=== PATIENT | male | born 1970 | race Hispanic/Latino ===

== ENCOUNTER 2017-12-03 12:53 | Observation (INO) | payer MEDICAID ==
[~2017-12-03] VITALS: Ht 182.9 cm; Wt 97.5 kg
[~2017-12-03 12:53] MED LIST: ASPI-1181 PO; ATOR20TA65 PO; CANA300T PO; CLOP75TA32 PO; ERYT1OIN7 OU; GLIP10TA9 PO; INSU100V12 SQ; LISI-617 PO; METO25 PO; NITR0.4T SL
[2017-12-03 13:38] LABS: BASOPHILS % (AUTO) 0.8 % (0.0-5.0); HEMATOCRIT 40.6 % (42-54); LYMPHOCYTES % (AUTO) 36.5 % (21.0-51.0); MEAN CORPUSCULAR VOLUME 88.5 fL (79-99); MONOCYTES % (AUTO) 10.7 % (3.0-13.0); NUCLEATED RED BLOOD CELLS 0.1 % (0.0-0.19); PLATELET COUNT (AUTO) 256 K/uL (130-400); RED BLOOD CELL COUNT(AUTO) 4.58 MIL/uL (4.50-6.20); RED CELL DISTRIBUTION WIDTH 12.8 % (11.0-15.5)
[2017-12-03 13:48] LABS: CREATININE 0.8 mg/dL (0.5-1.5); POTASSIUM 4.1 mmol/L (3.5-5.1)
[2017-12-03 13:52] LABS: ALBUMIN 3.6 g/dL (3.5-5.0); BILIRUBIN,TOTAL 0.6 mg/dL (0.2-1.0); TOTAL PROTEIN, SERUM 7.6 g/dL (6.0-8.3)
[2017-12-03 14:20] LABS: B-TYPE NATRIURETIC PEPTIDE 10 pg/mL (0-100)
[2017-12-03] MEDS ORDERED: MAG HYDROX/AL HYDROX/SIMETH ES 30 ML SUSP UDCUP PO PRN (15:45)
[2017-12-03] MEDS ORDERED: GUAIFENESIN-DM 200/20 MG 10 ML PO PRN (15:45)
[2017-12-03] MEDS ORDERED: ACETAMINOPHEN-CODEINE 300/30MG TAB PO PRN (15:45)
[2017-12-03] MEDS ORDERED: LACTULOSE 20 GM/30 ML UDCUP PO PRN (15:45)
[2017-12-03] MEDS ORDERED: NITROGLYCERIN 0.4 MG SL TAB SL PRN (15:45)
[2017-12-03] MEDS ORDERED: ACETAMINOPHEN 325 MG TAB PO PRN ×2 (15:45)
[2017-12-03] MEDS ORDERED: ONDANSETRON HCL MDV 20ML 2 MG/ML VIAL IV PRN (15:45)
[2017-12-03] MEDS ORDERED: ASPIRIN 81MG TAB.CHEW ONE ×2 (16:39→17:10)
[2017-12-03] MEDS ORDERED: ENOXAPARIN SODIUM 40 MG/0.4 ML SYRINGE SQ ONE (17:10)
[2017-12-03] MEDS: METOPROLOL TARTRATE 25 MG TAB PO SCH (21:00)
[2017-12-03] MEDS: FAMOTIDINE/PF 20 MG/2 ML VIAL IV SCH (21:00)
[2017-12-03] MEDS ORDERED: FAMOTIDINE/PF 20 MG/2 ML VIAL IV ONE (21:03)
[2017-12-03] MEDS ORDERED: METOPROLOL TARTRATE 25 MG TAB ONE (21:03)
[2017-12-03 21:41] LABS: CREATINE KINASE MB 0.5 ng/mL (0.5-3.6); CREATINE KINASE, TOTAL 112 U/L (21-232); MYOGLOBIN 41 ng/mL (10-92); TROPONIN I < 0.04 ng/mL (0.00-0.06)
[2017-12-03 21:45] VITALS: BP 127/80
[2017-12-03] MEDS ORDERED: KETOROLAC TROMETHAMINE 15MG/ML IV SCH (22:45)
[2017-12-03] MEDS ORDERED: KETOROLAC TROMETHAMINE 15MG/ML ONE (22:49)
[2017-12-03 23:34] VITALS: BP 127/80
[2017-12-04] MEDS ORDERED: POTASSIUM CHLORIDE 10% ELIXIR 20 MEQ/15 ML UDCUP PO PRN (00:30)
[2017-12-04] MEDS ORDERED: LIDOCAINE HCL-MPF 1% 2ML VIAL IVP PRN (00:30)
[2017-12-04] MEDS ORDERED: GLUCAGON 1MG KIT 1 MG ML IM PRN (00:30)
[2017-12-04] MEDS ORDERED: POTASSIUM CHLORIDE 20MEQ/100ML 100 ML IV PRN (00:30)
[2017-12-04] MEDS ORDERED: POTASSIUM CHLORIDE 20 MEQ ERTAB PO PRN (00:30)
[2017-12-04] MEDS ORDERED: DEXTROSE 50%-WATER 50 ML DISP.SYRIN IV PRN (00:30)
[2017-12-04 03:34] VITALS: BP 106/63
[2017-12-04 03:58] LABS: HEMATOCRIT 37.9 % (42-54); MEAN CORPUSCULAR HEMOGLOBIN 30.9 pg (27.0-33.0); MEAN CORPUSCULAR HGB CONC 34.8 g/dL (32.0-36.0); PLATELET COUNT (AUTO) 264 K/uL (130-400); RED BLOOD CELL COUNT(AUTO) 4.26 MIL/uL (4.50-6.20); RED CELL DISTRIBUTION WIDTH 12.6 % (11.0-15.5); WHITE BLOOD COUNT (AUTO) 5.9 K/uL (4.8-10.8)
[2017-12-04 04:16] LABS: CREATININE 1.3 mg/dL (0.5-1.5); POTASSIUM 4.1 mmol/L (3.5-5.1)
[2017-12-04] MEDS: INSULIN HUMULIN R 100 UNIT/ML 3ML SQ SCH ×2 (06:25→11:30)
[2017-12-04 06:47] LABS: CREATINE KINASE MB 0.5 ng/mL (0.5-3.6); CREATINE KINASE, TOTAL 165 U/L (21-232); MYOGLOBIN 55 ng/mL (10-92); TROPONIN I < 0.04 ng/mL (0.00-0.06)
[2017-12-04 07:59] VITALS: BP 122/72
[2017-12-04] MEDS ORDERED: ASPIRIN 325 MG TABLET PO SCH (09:00)
[2017-12-04] MEDS ORDERED: ENOXAPARIN SODIUM 40 MG/0.4 ML SYRINGE SQ SCH (09:00)
[2017-12-04] MEDS: FAMOTIDINE/PF 20 MG/2 ML VIAL IV SCH (09:10)
[2017-12-04] MEDS: METOPROLOL TARTRATE 25 MG TAB PO SCH (09:10)
[2017-12-04] MEDS ORDERED: KETOROLAC TROMETHAMINE 15MG/ML IV SCH ×2 (10:27→10:30)
[2017-12-04 11:38] VITALS: BP 114/73
== END 2017-12-04 11:49 | disposition home or self-care (01) ==
LOC: EDH 12:53 → EDHIP 12:54 → 2AH 20:51
PROVIDERS: ADMIT Family Medicine; ATTEND Family Medicine
DX: R07.9 Chest pain, unspecified (principal); E11.9 Type 2 diabetes mellitus without complications; E78.5 Hyperlipidemia, unspecified; I10 Essential (primary) hypertension; I25.10 Atherosclerotic heart disease of native coronary artery without angina pectoris; Z95.5 Presence of coronary angioplasty implant and graft; Z83.3 Family history of diabetes mellitus; Z82.49 Family history of ischemic heart disease and other diseases of the circulatory system
CPT/HCPCS: 36415 ×2; 71045; 80048; 80053; 82550 ×2; 82553 ×2; 82948 ×2; 83874 ×2; 83880; 84484 ×3; 85025; 85027; 93005 ×3; 96372; 96374; 96375; 99285; G0378 ×23; J1650 ×2; J1885 ×2; J3490 ×2

== ENCOUNTER 2018-01-14 21:49 | Emergency (ER) | payer MEDICAID ==
[2018-01-14] MEDS ORDERED: ASPIRIN 325 MG TABLET ONE (22:22)
[2018-01-14 22:43] LABS: BASOPHILS % (AUTO) 1.2 % (0.0-5.0); EOSINOPHILS % (AUTO) 0.6 % (0.0-8.0); HEMATOCRIT 39.3 % (42-54); LYMPHOCYTES % (AUTO) 28.5 % (21.0-51.0); MEAN CORPUSCULAR HEMOGLOBIN 32.5 pg (27.0-33.0); MEAN CORPUSCULAR HGB CONC 36.1 g/dL (32.0-36.0); MONOCYTES % (AUTO) 9.3 % (3.0-13.0); NEUTROPHILS % (AUTO) 60.4 % (40.0-77.0); PLATELET COUNT (AUTO) 252 K/uL (130-400); RED BLOOD CELL COUNT(AUTO) 4.37 MIL/uL (4.50-6.20); RED CELL DISTRIBUTION WIDTH 12.9 % (11.0-15.5); WHITE BLOOD COUNT (AUTO) 5.9 K/uL (4.8-10.8)
[2018-01-14 22:52] LABS: INR 0.91 (0.85-1.15); PARTIAL THROMBOPLASTIN TIME 24.5 SEC (26.3-35.5); PROTHROMBIN TIME 9.6 SEC (9.6-11.6)
[2018-01-14 23:20] LABS: ALBUMIN 3.6 g/dL (3.5-5.0); BILIRUBIN,TOTAL 0.4 mg/dL (0.2-1.0); CREATINE KINASE MB 0.5 ng/mL (0.5-3.6); CREATININE 1.1 mg/dL (0.5-1.5); POTASSIUM 4.2 mmol/L (3.5-5.1); TOTAL PROTEIN, SERUM 7.6 g/dL (6.0-8.3)
[2018-01-14] MEDS ORDERED: SODIUM CHLORIDE 0.9% 1000ML 1,000 ML IV ONE (23:29)
[2018-01-14] MEDS ORDERED: INSULIN HUMULIN R 100 UNIT/ML 3ML ONE (23:31)
== END 2018-01-15 01:11 | disposition home or self-care (01) ==
LOC: EDH 21:49
DX: R07.89 Other chest pain (principal); E11.65 Type 2 diabetes mellitus with hyperglycemia; I10 Essential (primary) hypertension; Z98.62 Peripheral vascular angioplasty status
CPT/HCPCS: 36415 ×2; 71045; 80053; 82550; 82553; 82947; 84484 ×2; 85025; 85610; 85730; 93005 ×2; 96361; 96374; 99285; J1815; J7030

== ENCOUNTER → 2018-01-28 | Outpatient (CLI) | payer MEDICAID ==
[~2018-01-28] MED LIST changes: +REGADENOSON 0.4 MG/5 ML PF SYG IVP SCH
== END | disposition home or self-care (01) ==
LOC: SHCH 07:58
PROVIDERS: ATTEND Internal Medicine Cardiovascular Disease
DX: I25.10 Atherosclerotic heart disease of native coronary artery without angina pectoris (principal)
CPT/HCPCS: 78452; 93017; 96374; A9500 ×2; J2785

== ENCOUNTER → 2018-07-24 | Outpatient (CLI) | payer MEDICAID ==
[~2018-07-24] MED LIST changes: -REGADENOSON 0.4 MG/5 ML PF SYG IVP SCH
== END | disposition home or self-care (01) ==
LOC: SHCH 12:59
PROVIDERS: ATTEND Internal Medicine Cardiovascular Disease
DX: I65.23 Occlusion and stenosis of bilateral carotid arteries (principal); I87.2 Venous insufficiency (chronic) (peripheral)
CPT/HCPCS: 93880

== ENCOUNTER 2018-07-26 20:25 | Emergency (ER) | payer MEDICAID ==
[2018-07-26] MEDS ORDERED: ASPIRIN 325 MG TABLET ONE (20:37)
[2018-07-26 20:51] LABS: BASOPHILS % (AUTO) 0.8 % (0.0-5.0); EOSINOPHILS % (AUTO) 0.5 % (0.0-8.0); HEMATOCRIT 44.4 % (42-54); LYMPHOCYTES % (AUTO) 24.5 % (21.0-51.0); MEAN CORPUSCULAR VOLUME 89.9 fL (79-99); MONOCYTES % (AUTO) 10.1 % (3.0-13.0); NEUTROPHILS % (AUTO) 64.1 % (40.0-77.0); NUCLEATED RED BLOOD CELLS 0.4 % (0.0-0.19); PLATELET COUNT (AUTO) 318 K/uL (130-400); RED BLOOD CELL COUNT(AUTO) 4.94 MIL/uL (4.50-6.20); WHITE BLOOD COUNT (AUTO) 6.7 K/uL (4.8-10.8)
[2018-07-26] MEDS ORDERED: NITROGLYCERIN 1GM/1 INCH PACKET TD ONE (21:03)
[2018-07-26 21:05] LABS: ALBUMIN 3.5 g/dL (3.5-5.0); POTASSIUM 4.5 mmol/L (3.5-5.1)
[2018-07-26 21:11] LABS: MEAN CORPUSCULAR HEMOGLOBIN 30.3 pg (27.0-33.0); MEAN CORPUSCULAR HGB CONC 33.7 g/dL (32.0-36.0)
[2018-07-26 21:22] LABS: B-TYPE NATRIURETIC PEPTIDE < 5 pg/mL (0-100)
[2018-07-26] MEDS ORDERED: SODIUM CHLORIDE 0.9% 1000ML 1,000 ML IV ONE (21:28)
[2018-07-26] MEDS ORDERED: INSULIN HUMULIN R 100 UNIT/ML 3ML ONE (21:29)
[2018-07-26 21:36] LABS: APPEARANCE,URINE Clear (CLEAR); BILIRUBIN,URINE Negative (NEGATIVE); COLOR,URINE Yellow (YELLOW); GLUCOSE, URINE (UA) >=1000 mg/dL (NEGATIVE); KETONES,URINE 15 mg/dL (NEGATIVE); LEUKOCYTE ESTERASE ,URINE Negative (NEGATIVE); NITRATE,URINE Negative (NEGATIVE); OCCULT BLOOD,URINE Negative (NEGATIVE); PROTEIN,URINE Negative (NEGATIVE); UROBILINOGEN,URINE 0.2 mg/dL (0.2-1.0)
[2018-07-26 21:43] LABS: AMPHET/METH SCREEN,URINE NEGATIVE (NEGATIVE); BARBITURATE SCREEN, URINE NEGATIVE (NEGATIVE); BENZODIAZEPINES SCREEN,URINE NEGATIVE (NEGATIVE); CANNABINOID SCREEN,URINE NEGATIVE (NEGATIVE); COCAINE SCREEN,URINE NEGATIVE (NEGATIVE); OPIATE SCREEN,URINE NEGATIVE (NEGATIVE); PHENCYCLIDINE SCREEN,URINE NEGATIVE (NEGATIVE)
[2018-07-26 21:49] LABS: CREATININE 0.7 mg/dL (0.5-1.5)
[2018-07-26 21:50] LABS: TOTAL PROTEIN, SERUM 6.6 g/dL (6.0-8.3)
[2018-07-26 22:07] LABS: BACTERIA,URINE Rare /HPF (None Seen); RBC,URINE 0-1 /HPF (0-1); SQUAMOUS EPITHELIAL CELL,UR Rare /HPF (0-2); WBC,URINE 0-1 /HPF (0-1)
== END 2018-07-26 23:30 | disposition home or self-care (01) ==
LOC: EDH 20:25
DX: R07.89 Other chest pain (principal); E11.65 Type 2 diabetes mellitus with hyperglycemia; E86.0 Dehydration; I10 Essential (primary) hypertension; E78.5 Hyperlipidemia, unspecified; I25.2 Old myocardial infarction; Z98.890 Other specified postprocedural states; Z79.82 Long term (current) use of aspirin; Z79.84 Long term (current) use of oral hypoglycemic drugs; Z79.899 Other long term (current) drug therapy
CPT/HCPCS: 36415; 71045; 71100; 80053; 80305; 81001; 82550; 82948; 83874; 83880; 84484 ×2; 85025; 85610; 85730; 93005 ×2; 94761; 96374; 99285; J1815; J7030

== ENCOUNTER 2019-03-14 19:53 | Observation (INO) | payer MEDICAID ==
[~2019-03-14] VITALS: Ht 182.9 cm; Wt 98.0 kg
[2019-03-14 20:14] LABS: BASOPHILS % (AUTO) 0.5 % (0.0-5.0); EOSINOPHILS % (AUTO) 0.1 % (0.0-8.0); HEMATOCRIT 43.9 % (42-54); LYMPHOCYTES % (AUTO) 9.4 % (21.0-51.0); MEAN CORPUSCULAR HEMOGLOBIN 29.7 pg (27.0-33.0); MEAN CORPUSCULAR HGB CONC 33.2 g/dL (32.0-36.0); MEAN CORPUSCULAR VOLUME 89.3 fL (79-99); MONOCYTES % (AUTO) 9.1 % (3.0-13.0); NEUTROPHILS % (AUTO) 80.9 % (40.0-77.0); NUCLEATED RED BLOOD CELLS 0.1 % (0.0-0.19); PLATELET COUNT (AUTO) 237 K/uL (130-400); RED BLOOD CELL COUNT(AUTO) 4.92 MIL/uL (4.50-6.20); RED CELL DISTRIBUTION WIDTH 13.7 % (11.0-15.5); WHITE BLOOD COUNT (AUTO) 12.3 K/uL (4.8-10.8)
[2019-03-14 20:28] LABS: CREATININE 1.1 mg/dL (0.5-1.5); POTASSIUM 4.9 mmol/L (3.5-5.1)
[2019-03-14 20:48] LABS: INR 0.93 (0.85-1.15); PROTHROMBIN TIME 9.8 SEC (9.6-11.6)
[2019-03-14 20:50] LABS: ALBUMIN 4.1 g/dL (3.5-5.0); BILIRUBIN,TOTAL 1.1 mg/dL (0.2-1.0); TOTAL PROTEIN, SERUM 8.2 g/dL (6.0-8.3)
[2019-03-14] MEDS ORDERED: LORAZEPAM 2 MG/ML 1 ML VIAL ONE (20:50)
[2019-03-14] MEDS ORDERED: SODIUM CHLORIDE 0.9% 500ML 500 ML IV ONE (22:43)
[2019-03-14] MEDS ORDERED: ASPIRIN 325MG EC TAB 325 MG TABLET.DR PO STA (22:53)
[2019-03-14] MEDS ORDERED: IOHEXOL 350 MG/ML 100ML INFUS..BTL IV ONE (22:59)
[2019-03-14] MEDS ORDERED: DEXTROSE 50%-WATER 50 ML DISP.SYRIN IV PRN (23:00)
[2019-03-14] MEDS ORDERED: GLUCAGON 1MG KIT 1 MG ML IM PRN (23:00)
[2019-03-14] MEDS ORDERED: ACETAMINOPHEN EXTRA STRENGTH 500 MG TABLET ONE (23:01)
[2019-03-14] MEDS ORDERED: ASPIRIN 325 MG TABLET ONE (23:01)
[2019-03-14 23:18] LABS: HEMOGLOBIN A1C 6.8 % (4.0-6.0)
[2019-03-15 00:05] VITALS: BP 101/62
[2019-03-15] MEDS ORDERED: MAGNESIUM 2GM PREMIX 50ML 50 ML IV PRN (00:45)
[2019-03-15] MEDS ORDERED: ACETAMINOPHEN 325 MG TAB PO PRN ×2 (00:45)
[2019-03-15] MEDS ORDERED: ONDANSETRON HCL 4 MG/2 ML VIAL IV PRN (00:45)
[2019-03-15] MEDS ORDERED: NITROGLYCERIN 0.4 MG SL TAB SL PRN (00:45)
[2019-03-15 04:00] VITALS: BP 91/66
[2019-03-15 04:16] LABS: BASOPHILS % (AUTO) 0.4 % (0.0-5.0); HEMATOCRIT 38.6 % (42-54); LYMPHOCYTES % (AUTO) 13.7 % (21.0-51.0); MEAN CORPUSCULAR HEMOGLOBIN 30.5 pg (27.0-33.0); MEAN CORPUSCULAR HGB CONC 34.1 g/dL (32.0-36.0); MEAN CORPUSCULAR VOLUME 89.4 fL (79-99); MONOCYTES % (AUTO) 8.6 % (3.0-13.0); NEUTROPHILS % (AUTO) 77.3 % (40.0-77.0); PLATELET COUNT (AUTO) 201 K/uL (130-400); RED BLOOD CELL COUNT(AUTO) 4.32 MIL/uL (4.50-6.20); RED CELL DISTRIBUTION WIDTH 13.9 % (11.0-15.5); WHITE BLOOD COUNT (AUTO) 9.2 K/uL (4.8-10.8)
[2019-03-15 04:33] LABS: APPEARANCE,URINE CLEAR (CLEAR); BILIRUBIN,URINE NEGATIVE (NEGATIVE); COLOR,URINE YELLOW (YELLOW); GLUCOSE, URINE (UA) >=1000 mg/dL (NEGATIVE); KETONES,URINE NEGATIVE (NEGATIVE); LEUKOCYTE ESTERASE ,URINE NEGATIVE (NEGATIVE); NITRATE,URINE NEGATIVE (NEGATIVE); OCCULT BLOOD,URINE NEGATIVE (NEGATIVE); PH,URINE 5.5 (5.0-8.0); PROTEIN,URINE NEGATIVE (NEGATIVE); UROBILINOGEN,URINE 0.2 mg/dL (0.2-1.0)
[2019-03-15 04:42] LABS: AMPHET/METH SCREEN,URINE NEGATIVE (NEGATIVE); BARBITURATE SCREEN, URINE NEGATIVE (NEGATIVE); BENZODIAZEPINES SCREEN,URINE NEGATIVE (NEGATIVE); CANNABINOID SCREEN,URINE NEGATIVE (NEGATIVE); COCAINE SCREEN,URINE NEGATIVE (NEGATIVE); OPIATE SCREEN,URINE NEGATIVE (NEGATIVE); PHENCYCLIDINE SCREEN,URINE NEGATIVE (NEGATIVE)
[2019-03-15 04:46] LABS: ALANINE AMINOTRANSFERASE 47 U/L (12-78); ALBUMIN 3.6 g/dL (3.5-5.0); ASPARTATE AMINOTRANSFERASE 17 U/L (10-37); CARBON DIOXIDE 25 mmol/L (21-32); CHLORIDE 98 mmol/L (101-111); CHOLESTEROL 100 mg/dL (<200); CREATINE KINASE, TOTAL 42 U/L (21-232); CREATININE 1.3 mg/dL (0.5-1.5); GLOMERULAR FILTR. RATE CALC 63 mL/min (>60); GLUCOSE,RANDOM 146 mg/dL (70-105); HDL CHOLESTEROL 41 mg/dL (29-71); LDL DIRECT 41 mg/dL (0-99); MYOGLOBIN 50 ng/mL (10-92); SODIUM SERUM 134 mmol/L (136-145); TOTAL PROTEIN, SERUM 7.5 g/dL (6.0-8.3); TRIGLYCERIDES 161 mg/dL (30-200); TROPONIN I < 0.04 ng/mL (0.00-0.06); UREA NITROGEN, BLOOD 26 mg/dL (7-18)
[2019-03-15 04:49] LABS: BACTERIA,URINE None Seen /HPF (None Seen); RBC,URINE None Seen /HPF (0-1); SQUAMOUS EPITHELIAL CELL,UR Few /HPF (0-2); WBC,URINE None Seen /HPF (0-1); YEAST,URINE BUDDING None Seen /HPF (None Seen)
[2019-03-15] MEDS: INSULIN HUMULIN R 100 UNIT/ML 3ML SQ SCH ×4 (05:49→23:59)
[2019-03-15 08:00] VITALS: BP 105/67
[2019-03-15] MEDS ORDERED: MORPHINE SULFATE 2 MG/ML 1ML SYG IVP PRN (08:45)
[2019-03-15] MEDS ORDERED: SODIUM CHLORIDE 0.9% 1000ML 1,000 ML IV SCH (08:45)
[2019-03-15] MEDS ORDERED: DIATR MEGLU/DIATRIZOATE SODIUM 30 ML BOTTLE ONE (08:47)
[2019-03-15] MEDS ORDERED: ENOXAPARIN SODIUM 30 MG/0.3 ML SQ SCH (09:00)
[2019-03-15] MEDS: METOPROLOL TARTRATE 25 MG TAB PO SCH ×2 (09:00→22:01)
[2019-03-15] MEDS ORDERED: ASPIRIN 325MG EC TAB 325 MG TABLET.DR PO SCH (09:00)
[2019-03-15] MEDS ORDERED: ASPIRIN 81MG TAB.CHEW ONE (09:05)
--- NOTE | 2019-03-15 09:06 | NUR ---
VITAL SIGNS REPORTED TO [facility] TO HOLD METOPROLOL FOR AM DOSE CHANGE ASPIRIN TO 81 MG PO DAILY
[2019-03-15] MEDS: FAMOTIDINE 20MG TAB 20 MG TAB PO SCH ×2 (09:09→22:01)
[2019-03-15 11:00] VITALS: BP 108/60
[2019-03-15 12:48] LABS: CREATINE KINASE, TOTAL 42 U/L (21-232); MYOGLOBIN 47 ng/mL (10-92); TROPONIN I < 0.04 ng/mL (0.00-0.06)
[2019-03-15 16:00] VITALS: BP 126/74
[2019-03-15 20:00] VITALS: BP 116/72
[2019-03-16 00:03] VITALS: BP 107/68
[2019-03-16 04:00] VITALS: BP 110/75
[2019-03-16 04:27] LABS: BASOPHILS % (AUTO) 0.6 % (0.0-5.0); EOSINOPHILS % (AUTO) 0.5 % (0.0-8.0); HEMATOCRIT 36.9 % (42-54); LYMPHOCYTES % (AUTO) 21.8 % (21.0-51.0); MEAN CORPUSCULAR HGB CONC 33.4 g/dL (32.0-36.0); MEAN CORPUSCULAR VOLUME 89.9 fL (79-99); MONOCYTES % (AUTO) 16.5 % (3.0-13.0); NEUTROPHILS % (AUTO) 60.6 % (40.0-77.0); PLATELET COUNT (AUTO) 205 K/uL (130-400); RED CELL DISTRIBUTION WIDTH 13.8 % (11.0-15.5); WHITE BLOOD COUNT (AUTO) 7.5 K/uL (4.8-10.8)
[2019-03-16 04:37] LABS: CREATININE 1.1 mg/dL (0.5-1.5); POTASSIUM 4.1 mmol/L (3.5-5.1)
[2019-03-16] MEDS: INSULIN HUMULIN R 100 UNIT/ML 3ML SQ SCH ×2 (05:58→11:30)
[2019-03-16 08:00] VITALS: BP 106/65
[2019-03-16] MEDS ORDERED: ASPIRIN 325MG EC TAB 325 MG TABLET.DR PO SCH (09:00)
[2019-03-16] MEDS: METOPROLOL TARTRATE 25 MG TAB PO SCH (09:00)
[2019-03-16] MEDS: FAMOTIDINE 20MG TAB 20 MG TAB PO SCH (09:00)
[2019-03-16 11:00] VITALS: BP 107/67
== END 2019-03-16 16:39 | disposition home or self-care (01) ==
LOC: EDH 19:53 → EDHIP 19:54 → 4CH 03-15 00:59
PROVIDERS: ADMIT Internal Medicine; ATTEND Internal Medicine
DX: R07.89 Other chest pain (principal); D72.829 Elevated white blood cell count, unspecified; E11.9 Type 2 diabetes mellitus without complications; R42 Dizziness and giddiness; E78.5 Hyperlipidemia, unspecified; I10 Essential (primary) hypertension; I25.10 Atherosclerotic heart disease of native coronary artery without angina pectoris; R13.10 Dysphagia, unspecified; I25.2 Old myocardial infarction; Z95.5 Presence of coronary angioplasty implant and graft; Z82.3 Family history of stroke; Z82.49 Family history of ischemic heart disease and other diseases of the circulatory system; Z83.3 Family history of diabetes mellitus; Z79.899 Other long term (current) drug therapy
CPT/HCPCS: 36415 ×3; 71045; 71275; 74170; 80048; 80053 ×2; 80061; 80305; 81001; 82550 ×3; 82948 ×6; 83036; 83690; 83735 ×2; 83874 ×3; 83880; 84484 ×3; 85025 ×3; 85610; 85730; 87040 ×2; 93005 ×3; 96360; 96361 ×2; 99284; G0378 ×45; J1650; J1815; J2060; J7040; Q9963; Q9967

== ENCOUNTER 2019-05-10 15:18 | Observation (INO) | payer MEDICAID ==
[~2019-05-10] VITALS: Ht 182.9 cm; Wt 97.5 kg
[2019-05-10] MEDS ORDERED: ASPIRIN 325 MG TABLET ONE (15:30)
[2019-05-10] MEDS ORDERED: SODIUM CHLORIDE 0.9% 500ML 500 ML IV ONE (15:39)
[2019-05-10 15:57] LABS: BASOPHILS % (AUTO) 0.9 % (0.0-5.0); EOSINOPHILS % (AUTO) 0.8 % (0.0-8.0); HEMATOCRIT 43.6 % (42-54); LYMPHOCYTES % (AUTO) 21.2 % (21.0-51.0); MEAN CORPUSCULAR HEMOGLOBIN 30.2 pg (27.0-33.0); MEAN CORPUSCULAR HGB CONC 33.1 g/dL (32.0-36.0); MEAN CORPUSCULAR VOLUME 91.1 fL (79-99); MONOCYTES % (AUTO) 9.4 % (3.0-13.0); NEUTROPHILS % (AUTO) 67.7 % (40.0-77.0); NUCLEATED RED BLOOD CELLS 0.1 % (0.0-0.19); PLATELET COUNT (AUTO) 256 K/uL (130-400); RED BLOOD CELL COUNT(AUTO) 4.78 MIL/uL (4.50-6.20); RED CELL DISTRIBUTION WIDTH 13.5 % (11.0-15.5); WHITE BLOOD COUNT (AUTO) 8.2 K/uL (4.8-10.8)
[2019-05-10 16:07] LABS: INR 0.95 (0.85-1.15); PARTIAL THROMBOPLASTIN TIME 22.6 SEC (26.3-35.5)
[2019-05-10] MEDS ORDERED: NITROGLYCERIN 1GM/1 INCH PACKET TD ONE (16:09)
[2019-05-10 17:14] LABS: CREATININE 1.3 mg/dL (0.5-1.5); POTASSIUM 4.3 mmol/L (3.5-5.1)
[2019-05-10 17:19] LABS: ALBUMIN 4.7 g/dL (3.5-5.0); BILIRUBIN,TOTAL 0.5 mg/dL (0.2-1.0); TOTAL PROTEIN, SERUM 8.4 g/dL (6.0-8.3)
[2019-05-10 19:42] LABS: APPEARANCE,URINE Clear (CLEAR); BILIRUBIN,URINE Negative (NEGATIVE); COLOR,URINE Yellow (YELLOW); GLUCOSE, URINE (UA) >=1000 mg/dL (NEGATIVE); KETONES,URINE Negative (NEGATIVE); LEUKOCYTE ESTERASE ,URINE Negative (NEGATIVE); NITRATE,URINE Negative (NEGATIVE); OCCULT BLOOD,URINE Negative (NEGATIVE); PROTEIN,URINE Negative (NEGATIVE); UROBILINOGEN,URINE 0.2 mg/dL (0.2-1.0)
[2019-05-10 19:50] LABS: AMPHET/METH SCREEN,URINE NEGATIVE (NEGATIVE); BARBITURATE SCREEN, URINE NEGATIVE (NEGATIVE); BENZODIAZEPINES SCREEN,URINE NEGATIVE (NEGATIVE); CANNABINOID SCREEN,URINE NEGATIVE (NEGATIVE); COCAINE SCREEN,URINE NEGATIVE (NEGATIVE); OPIATE SCREEN,URINE NEGATIVE (NEGATIVE); PHENCYCLIDINE SCREEN,URINE NEGATIVE (NEGATIVE)
[2019-05-10] MEDS ORDERED: MORPHINE SULFATE 2 MG/ML 1ML SYG IV PRN (20:30)
[2019-05-10] MEDS ORDERED: NITROGLYCERIN 1GM/1 INCH PACKET TD SCH (20:45)
[2019-05-10 21:55] VITALS: BP 127/72
[2019-05-10] MEDS: FAMOTIDINE 20MG TAB 20 MG TAB PO SCH (22:29)
--- NOTE | 2019-05-10 22:40 | NUR ---
Nursing Note Informed Hospitalist PATROL INSPECTOR Parish that pt's blood sugar is 221. Also that the pt is going to bring home medications tomorrow. She put the pt on 1/2 sliding scale of insulin and stated to inform hospitalist when pt brings medications and list is updated.
[2019-05-11] VITALS (8 sets, daily range): BP systolic 109–128; BP diastolic 66–77
[2019-05-11 06:18] LABS: BASOPHILS % (AUTO) 0.6 % (0.0-5.0); EOSINOPHILS % (AUTO) 1.5 % (0.0-8.0); HEMATOCRIT 38.7 % (42-54); LYMPHOCYTES % (AUTO) 33.6 % (21.0-51.0); MEAN CORPUSCULAR HEMOGLOBIN 30.5 pg (27.0-33.0); MEAN CORPUSCULAR HGB CONC 33.7 g/dL (32.0-36.0); MEAN CORPUSCULAR VOLUME 90.5 fL (79-99); MONOCYTES % (AUTO) 11.5 % (3.0-13.0); NEUTROPHILS % (AUTO) 52.8 % (40.0-77.0); PLATELET COUNT (AUTO) 233 K/uL (130-400); RED BLOOD CELL COUNT(AUTO) 4.28 MIL/uL (4.50-6.20); RED CELL DISTRIBUTION WIDTH 13.9 % (11.0-15.5); WHITE BLOOD COUNT (AUTO) 6.4 K/uL (4.8-10.8)
[2019-05-11] MEDS: INSULIN HUMULIN R 100 UNIT/ML 3ML SQ SCH ×4 (06:23→22:05)
[2019-05-11 06:34] LABS: HEMOGLOBIN A1C 6.6 % (4.0-6.0)
[2019-05-11 06:37] LABS: CREATININE 0.9 mg/dL (0.5-1.5); POTASSIUM 3.8 mmol/L (3.5-5.1)
--- NOTE | 2019-05-11 06:43 | NUR ---
Nursing Note paged Dr. Rae at [phone]. waiting for call back
[2019-05-11] MEDS: ASPIRIN 81MG TAB.CHEW PO SCH (10:45)
[2019-05-11] MEDS: FAMOTIDINE 20MG TAB 20 MG TAB PO SCH ×2 (10:45→22:01)
[2019-05-11] MEDS: ENOXAPARIN SODIUM 40 MG/0.4 ML SYRINGE SQ SCH (10:46)
[2019-05-11] MEDS ORDERED: SITA100T12 PO (12:15)
[2019-05-11] MEDS ORDERED: EMPA1TAB7 PO (12:15)
[2019-05-11] MEDS ORDERED: ROSU40TA21 PO (12:15)
[2019-05-11] MEDS ORDERED: NITROGLYCERIN 0.4 MG SL TAB SL SCH (13:00)
[2019-05-11] MEDS ORDERED: HYDROCODONE/ACETAMINOPHEN 5/325 MG TAB PO PRN (13:00)
[2019-05-11] MEDS: NITROGLYCERIN 1GM/1 INCH PACKET TD SCH ×2 (13:52→16:00)
[2019-05-11] MEDS: LINAGLIPTIN 5 MG TABLET PO SCH (13:54)
--- NOTE | 2019-05-11 17:36 | NUR ---
INITIAL: Met with pt and family this afternoon to discuss dcp. Pt mentions that he lives w his brother Brenden Flynn. He mentions that prior to admission he was using a cane for ambulation. He requires assist w ADLs. and has provider services but is not able to recall #hrs. Per pt he feels safe and comfortable to return home at [place]. CM to continue to follow and wait for Md recommendations. Addendum: 05/11/19 at 1740 by LEANDRA LEON Amended: Links added.
[2019-05-11] MEDS: GLIPIZIDE 5 MG TABLET PO SCH (18:26)
[2019-05-11] MEDS: METOPROLOL TARTRATE 25 MG TAB PO SCH (22:01)
[2019-05-11] MEDS: ATORVASTATIN CALCIUM 40 MG TABLET PO SCH (22:01)
[2019-05-12] VITALS: BP 125/78
[2019-05-12] MEDS: NITROGLYCERIN 1GM/1 INCH PACKET TD SCH ×3 (00:23→17:33)
[2019-05-12 04:00] VITALS: BP 119/73
[2019-05-12 06:16] LABS: HEMATOCRIT 37.9 % (42-54); MEAN CORPUSCULAR HEMOGLOBIN 30.5 pg (27.0-33.0); MEAN CORPUSCULAR HGB CONC 34.1 g/dL (32.0-36.0); MEAN CORPUSCULAR VOLUME 89.5 fL (79-99); NUCLEATED RED BLOOD CELLS 0.1 % (0.0-0.19); PLATELET COUNT (AUTO) 212 K/uL (130-400); RED BLOOD CELL COUNT(AUTO) 4.23 MIL/uL (4.50-6.20); RED CELL DISTRIBUTION WIDTH 13.4 % (11.0-15.5); WHITE BLOOD COUNT (AUTO) 5.8 K/uL (4.8-10.8)
[2019-05-12 06:33] LABS: ALBUMIN 3.6 g/dL (3.5-5.0); BILIRUBIN,TOTAL 0.4 mg/dL (0.2-1.0); CREATININE 0.8 mg/dL (0.5-1.5); POTASSIUM 3.4 mmol/L (3.5-5.1); TOTAL PROTEIN, SERUM 7.2 g/dL (6.0-8.3)
[2019-05-12] MEDS: INSULIN HUMULIN R 100 UNIT/ML 3ML SQ SCH ×4 (06:54→21:00)
[2019-05-12 08:00] VITALS: BP 112/71
[2019-05-12] MEDS ORDERED: GLUCAGON 1MG KIT 1 MG ML IM PRN (08:30)
[2019-05-12] MEDS ORDERED: DEXTROSE 50%-WATER 50 ML DISP.SYRIN IV PRN (08:30)
[2019-05-12] MEDS ORDERED: CLOPIDOGREL BISULFATE 75 MG TAB PO SCH (09:00)
[2019-05-12] MEDS: ASPIRIN 81 MG EC TAB PO SCH (09:00)
[2019-05-12] MEDS: METFORMIN HCL PO SCH (09:00)
[2019-05-12] MEDS: EMPAGLIFLOZIN PO SCH (09:00)
--- NOTE | 2019-05-12 09:37 | NUR ---
Patient taken to Stress Test
--- NOTE | 2019-05-12 11:20 | NUR ---
Patient returned from 1st part of Stress test Addendum: 05/12/19 at 1142 by ZAK MORILLO RN RN Patient may resume diet
[2019-05-12 12:00] VITALS: BP 112/73
[2019-05-12] MEDS ORDERED: POTASSIUM CHLORIDE 10MEQ/100ML 100 ML IV PRN (12:00)
[2019-05-12] MEDS ORDERED: POTASSIUM CHLORIDE 10% ELIXIR 20 MEQ/15 ML UDCUP PO PRN (12:00)
[2019-05-12] MEDS ORDERED: POTASSIUM CHLORIDE 20 MEQ ERTAB PO PRN (12:00)
[2019-05-12] MEDS ORDERED: LIDOCAINE HCL-MPF 1% 2ML VIAL IVP PRN (12:00)
[2019-05-12] MEDS: ASPIRIN 81MG TAB.CHEW PO SCH (12:49)
[2019-05-12] MEDS: LINAGLIPTIN 5 MG TABLET PO SCH (12:50)
[2019-05-12] MEDS: FAMOTIDINE 20MG TAB 20 MG TAB PO SCH ×2 (12:50→21:55)
[2019-05-12] MEDS: ENOXAPARIN SODIUM 40 MG/0.4 ML SYRINGE SQ SCH (12:51)
[2019-05-12] MEDS: LISINOPRIL 2.5 MG TABLET PO SCH (12:51)
[2019-05-12] MEDS: METOPROLOL TARTRATE 25 MG TAB PO SCH ×2 (12:52→21:55)
[2019-05-12] MEDS: GLIPIZIDE 5 MG TABLET PO SCH ×2 (12:54→17:00)
[2019-05-12 16:00] VITALS: BP 151/92
[2019-05-12 20:10] VITALS: BP 110/66
[2019-05-12] MEDS: ATORVASTATIN CALCIUM 40 MG TABLET PO SCH (21:54)
[2019-05-13] VITALS: BP 117/68
[2019-05-13] MEDS: NITROGLYCERIN 1GM/1 INCH PACKET TD SCH (01:01)
[2019-05-13 04:00] VITALS: BP 108/72
[2019-05-13] MEDS: INSULIN HUMULIN R 100 UNIT/ML 3ML SQ SCH ×2 (05:55→11:30)
[2019-05-13 07:01] LABS: CREATININE 0.8 mg/dL (0.5-1.5)
[2019-05-13 07:20] LABS: BASOPHILS % (AUTO) 1.6 % (0.0-5.0); EOSINOPHILS % (AUTO) 1.4 % (0.0-8.0); HEMATOCRIT 39.4 % (42-54); LYMPHOCYTES % (AUTO) 29.9 % (21.0-51.0); MEAN CORPUSCULAR HEMOGLOBIN 30.8 pg (27.0-33.0); MEAN CORPUSCULAR HGB CONC 33.9 g/dL (32.0-36.0); MEAN CORPUSCULAR VOLUME 90.8 fL (79-99); MONOCYTES % (AUTO) 10.3 % (3.0-13.0); NEUTROPHILS % (AUTO) 56.8 % (40.0-77.0); PLATELET COUNT (AUTO) 222 K/uL (130-400); RED BLOOD CELL COUNT(AUTO) 4.34 MIL/uL (4.50-6.20); RED CELL DISTRIBUTION WIDTH 13.4 % (11.0-15.5)
[2019-05-13 08:00] VITALS: BP 135/94
[2019-05-13] MEDS: LINAGLIPTIN 5 MG TABLET PO SCH (08:43)
[2019-05-13] MEDS: GLIPIZIDE 5 MG TABLET PO SCH (08:44)
[2019-05-13] MEDS: FAMOTIDINE 20MG TAB 20 MG TAB PO SCH (08:45)
[2019-05-13] MEDS: ASPIRIN 81MG TAB.CHEW PO SCH (08:49)
[2019-05-13] MEDS: METOPROLOL TARTRATE 25 MG TAB PO SCH (08:50)
[2019-05-13] MEDS: LISINOPRIL 2.5 MG TABLET PO SCH (08:50)
[2019-05-13] MEDS: ENOXAPARIN SODIUM 40 MG/0.4 ML SYRINGE SQ SCH (08:53)
[2019-05-13] MEDS: ASPIRIN 81 MG EC TAB PO SCH (08:55)
[2019-05-13] MEDS: METFORMIN HCL PO SCH (08:55)
[2019-05-13] MEDS: EMPAGLIFLOZIN PO SCH (08:55)
[2019-05-13] MEDS ORDERED: ISOSORBIDE MONO 30MG TAB SR PO SCH (09:00)
[2019-05-13] MEDS ORDERED: Isosorbide Mono 30MG Tab Sr PO (10:21)
[2019-05-13 12:00] VITALS: BP 111/68
--- NOTE | 2019-05-13 15:08 | NUR ---
DISCHARGE INSTRUCTIONS PROVIDED TO THE PATIENT WITH PRESCRIPTION, AND THE SCHEDULED FOLLOW-UP APPOINTMENTS WERE REVIEWED WITH HIM AND HE VERBALIZED UNDERSTANDING. IV ACCESS WAS REMOVED WITHOUT COMPLICATION. PATIENT IS TO LEAVE THE UNIT IN STABLE CONDITION WITH FAMILY. PENDING [employer].
== END 2019-05-13 15:20 | disposition home or self-care (01) ==
LOC: EEVIPCON 15:18 → EDH 15:18 → EDHIP 15:19 → UNDOADMOB 20:17 → EDHIP 20:17 → 3DH 21:22 → EDHIP 21:22
PROVIDERS: ADMIT Family Medicine; ATTEND Family Medicine
DX: I25.118 Atherosclerotic heart disease of native coronary artery with other forms of angina pectoris (principal); E11.65 Type 2 diabetes mellitus with hyperglycemia; E78.5 Hyperlipidemia, unspecified; E87.6 Hypokalemia; I10 Essential (primary) hypertension; I25.2 Old myocardial infarction; Z82.3 Family history of stroke; Z82.49 Family history of ischemic heart disease and other diseases of the circulatory system; Z83.3 Family history of diabetes mellitus; Z95.5 Presence of coronary angioplasty implant and graft; Z79.899 Other long term (current) drug therapy
CPT/HCPCS: 36415 ×4; 71045; 78452; 80048 ×2; 80053 ×2; 80061; 80305; 81003; 82550; 82948 ×11; 83036; 83880; 84484 ×2; 85025 ×3; 85027; 85610; 85730; 93005 ×2; 93017; 96372 ×3; 99291; A4600; A9500 ×2; G0378 ×72; J1650 ×3; J1815 ×4; J7040; 96374

== ENCOUNTER 2019-07-07 06:28 | Day surgery (SDC) | payer MEDICAID ==
[~2019-07-07] VITALS: Ht 182.9 cm; Wt 99.8 kg
[~2019-07-07 06:28] MED LIST changes: -ATOR20TA65 PO; -CANA300T PO; -CLOP75TA32 PO; +EMPA1TAB7 PO; -ERYT1OIN7 OU; -INSU100V12 SQ; +Isosorbide Mono 30MG Tab Sr PO; +PLAVIX; +ROSU40TA21 PO; +SITA100T12 PO; +SODIUM CHLORIDE 0.9% 1000ML 1,000 ML IV ONE
[2019-07-07 07:00] VITALS: BP 122/81
[2019-07-07] MEDS ORDERED: PROPOFOL 10 MG/ML 20ML VIAL IV ONE (07:57)
[2019-07-07 08:16] VITALS: BP 123/71
[2019-07-07 08:21] VITALS: BP 118/71
[2019-07-07 08:26] VITALS: BP 126/72
[2019-07-07 08:31] VITALS: BP 124/72
[2019-07-07 08:36] VITALS: BP 132/72
--- NOTE | 2019-07-07 08:45 | NUR ---
dc pt dc home via [place],no distress noted. pt denied any pain or discomforts. pt accompanied by sister, dc instructions reinforced to patient, sister, both verbalized understanding.
== END 2019-07-07 08:45 | disposition home or self-care (01) ==
LOC: DAH 06:28 → ENDO 06:28
PROVIDERS: ATTEND Internal Medicine Gastroenterology
DX: R19.4 Change in bowel habit (principal); D12.0 Benign neoplasm of cecum; B96.81 Helicobacter pylori [H. pylori] as the cause of diseases classified elsewhere; K29.50 Unspecified chronic gastritis without bleeding; K22.8 Other specified diseases of esophagus; I11.9 Hypertensive heart disease without heart failure; K21.9 Gastro-esophageal reflux disease without esophagitis; F41.9 Anxiety disorder, unspecified; F32.9 Major depressive disorder, single episode, unspecified; M19.90 Unspecified osteoarthritis, unspecified site; I25.10 Atherosclerotic heart disease of native coronary artery without angina pectoris; E11.9 Type 2 diabetes mellitus without complications; E78.5 Hyperlipidemia, unspecified; Z87.442 Personal history of urinary calculi; Z95.5 Presence of coronary angioplasty implant and graft; Z79.899 Other long term (current) drug therapy
CPT/HCPCS: 43239; 45380; 82948 ×2; A4215; A4221; A4222; A4223; A4606; A4615; A4663; J2704; J7030

== ENCOUNTER → 2019-07-18 | Outpatient (CLI) | payer MEDICAID ==
[~2019-07-18] MED LIST changes: -PLAVIX; -SODIUM CHLORIDE 0.9% 1000ML 1,000 ML IV ONE
== END | disposition home or self-care (01) ==
LOC: RAH 10:00
PROVIDERS: ATTEND Internal Medicine Gastroenterology
DX: K76.0 Fatty (change of) liver, not elsewhere classified (principal); K80.20 Calculus of gallbladder without cholecystitis without obstruction
CPT/HCPCS: 76700

== ENCOUNTER 2019-11-29 17:15 | Inpatient (IN) | payer MEDICAID ==
[~2019-11-29] VITALS: Ht 182.9 cm; Wt 97.4 kg
[2019-11-29] MEDS ORDERED: ASPIRIN 325 MG TABLET ONE (17:28)
[2019-11-29 17:33] LABS: BASOPHILS % (AUTO) 0.8 % (0.0-5.0); EOSINOPHILS % (AUTO) 0.6 % (0.0-8.0); HEMATOCRIT 41.4 % (42-54); LYMPHOCYTES % (AUTO) 30.8 % (21.0-51.0); MEAN CORPUSCULAR HGB CONC 34.3 g/dL (32.0-36.0); MEAN CORPUSCULAR VOLUME 87.5 fL (79-99); MONOCYTES % (AUTO) 9.2 % (3.0-13.0); NEUTROPHILS % (AUTO) 58.2 % (40.0-77.0); PLATELET COUNT (AUTO) 233 K/uL (130-400); RED BLOOD CELL COUNT(AUTO) 4.73 MIL/uL (4.50-6.20); RED CELL DISTRIBUTION WIDTH 12.5 % (11.0-15.5); WHITE BLOOD COUNT (AUTO) 4.9 K/uL (4.8-10.8)
[2019-11-29] MEDS ORDERED: NITROGLYCERIN 0.4 MG SL TAB SL ONE (17:40)
[2019-11-29 17:47] LABS: INR 0.89 (0.85-1.15); PARTIAL THROMBOPLASTIN TIME 21.6 SEC (26.3-35.5); PROTHROMBIN TIME 9.7 SEC (9.6-11.6)
[2019-11-29 17:50] LABS: ALBUMIN 3.8 g/dL (3.5-5.0); BILIRUBIN,TOTAL 0.5 mg/dL (0.2-1.0); CREATININE 1.3 mg/dL (0.5-1.5); POTASSIUM 3.7 mmol/L (3.5-5.1); TOTAL PROTEIN, SERUM 8.1 g/dL (6.0-8.3)
[2019-11-29] MEDS ORDERED: ONDANSETRON HCL 4 MG/2 ML VIAL ONE (17:54)
[2019-11-29] MEDS ORDERED: SODIUM CHLORIDE 0.9% 1000ML 1,000 ML IV ONE ×2 (17:54→23:01)
[2019-11-29] MEDS ORDERED: MORPHINE SULFATE 4 MG/1ML SYG ONE (17:54)
[2019-11-29] MEDS ORDERED: INSULIN HUMULIN R 100 UNIT/ML 3ML ONE (18:42)
[2019-11-29] MEDS ORDERED: MORPHINE SULFATE 2 MG/ML 1ML SYG IV PRN (22:00)
[2019-11-29] MEDS ORDERED: ACETAMINOPHEN 325 MG TAB PO PRN ×2 (22:00)
[2019-11-29] MEDS ORDERED: DEXTROSE 50%-WATER 50 ML DISP.SYRIN IV PRN (22:00)
[2019-11-29] MEDS ORDERED: SODIUM CHLORIDE 0.9% 1000ML 1,000 ML IV SCH (22:00)
[2019-11-29] MEDS ORDERED: ONDANSETRON HCL 4 MG/2 ML VIAL IV PRN (22:00)
[2019-11-29] MEDS ORDERED: GUAIFENESIN-DM 200/20 MG 10 ML PO PRN (22:00)
[2019-11-29] MEDS ORDERED: GLUCAGON 1MG KIT 1 MG ML IM PRN (22:00)
[2019-11-29] MEDS ORDERED: NITROGLYCERIN 1GM/1 INCH PACKET TD ONE (23:01)
[2019-11-30] MEDS ORDERED: HEPARIN SODIUM 5000UNIT/ML 1ML VIAL ONE ×2 (01:33→08:42)
[2019-11-30 06:45] LABS: BASOPHILS % (AUTO) 0.8 % (0.0-5.0); EOSINOPHILS % (AUTO) 1.1 % (0.0-8.0); HEMATOCRIT 36.7 % (42-54); LYMPHOCYTES % (AUTO) 41.7 % (21.0-51.0); MEAN CORPUSCULAR HEMOGLOBIN 30.4 pg (27.0-33.0); MEAN CORPUSCULAR HGB CONC 34.1 g/dL (32.0-36.0); MEAN CORPUSCULAR VOLUME 89.3 fL (79-99); MONOCYTES % (AUTO) 9.3 % (3.0-13.0); NEUTROPHILS % (AUTO) 46.7 % (40.0-77.0); PLATELET COUNT (AUTO) 217 K/uL (130-400); RED BLOOD CELL COUNT(AUTO) 4.11 MIL/uL (4.50-6.20); RED CELL DISTRIBUTION WIDTH 12.9 % (11.0-15.5); WHITE BLOOD COUNT (AUTO) 5.3 K/uL (4.8-10.8)
[2019-11-30 07:14] LABS: HEMOGLOBIN A1C 9.6 % (4.0-6.0)
[2019-11-30 07:21] LABS: ALBUMIN 3.3 g/dL (3.5-5.0); BILIRUBIN,TOTAL 0.4 mg/dL (0.2-1.0); CREATININE 0.9 mg/dL (0.5-1.5); POTASSIUM 3.6 mmol/L (3.5-5.1)
[2019-11-30 08:40] LABS: TOTAL PROTEIN, SERUM 6.4 g/dL (6.0-8.3)
[2019-11-30] MEDS ORDERED: NITROGLYCERIN 1GM/1 INCH PACKET TD ONE (08:42)
[2019-11-30] MEDS ORDERED: ASPIRIN 81MG TAB.CHEW ONE (08:42)
[2019-11-30] MEDS ORDERED: FAMOTIDINE 20MG TAB 20 MG TAB ONE (08:42)
[2019-11-30] MEDS ORDERED: METOPROLOL TARTRATE 25 MG TAB ONE (08:43)
[2019-11-30] MEDS: LOSARTAN 50 MG TABLET PO SCH (09:00)
[2019-11-30] MEDS: ASPIRIN 81MG TAB.CHEW PO SCH (09:00)
[2019-11-30] MEDS ORDERED: ATOR40TA69 PO (09:22)
[2019-11-30] MEDS ORDERED: METF-446 PO (09:22)
[2019-11-30] MEDS ORDERED: AMOX500C2 PO (09:22)
[2019-11-30] MEDS ORDERED: CLAR-44 PO (09:22)
[2019-11-30] MEDS ORDERED: GENTOO OU (09:22)
[2019-11-30] MEDS ORDERED: PANT40TA25 PO (09:22)
[2019-11-30] MEDS ORDERED: LOSARTAN 50 MG TABLET ONE (10:07)
[2019-11-30] MEDS ORDERED: TICAGRELOR 90 MG TABLET PO SCH (11:30)
[2019-11-30] MEDS ORDERED: HEPARIN 25000 UNITS/250 ML D5W 250 ML IV ONE (13:26)
[2019-11-30] MEDS ORDERED: INSULIN HUMULIN R 100 UNIT/ML 3ML ONE ×2 (13:27→18:48)
[2019-11-30] MEDS ORDERED: TICAGRELOR 90 MG TABLET ONE ×2 (13:27→21:52)
--- NOTE | 2019-11-30 19:32 | NUR ---
cm note met with patient and states resides at home with brother tawanda, independent with adls and ambulation, is weak at times . provider 2-3hrs daily. states dc plan is back home. Addendum: 11/30/19 at 1938 by WALKER CARLIN CM Amended: Links added.
[2019-11-30 20:26] LABS: INR 0.9 (0.85-1.15); PARTIAL THROMBOPLASTIN TIME 56.6 SEC (26.3-35.5); PROTHROMBIN TIME 9.8 SEC (9.6-11.6)
[2019-11-30] MEDS: TICAGRELOR 90 MG TABLET PO SCH (21:00)
[2019-11-30] MEDS ORDERED: ATORVASTATIN CALCIUM 20 MG TABLET PO SCH (21:00)
[2019-11-30] MEDS: INSULIN HUMULIN R 100 UNIT/ML 3ML SQ SCH (21:00)
[2019-11-30] MEDS ORDERED: ATORVASTATIN CALCIUM 20 MG TABLET ONE (21:52)
[2019-11-30] MEDS ORDERED: SODIUM CHLORIDE 0.9% 1000ML 1,000 ML IV ONE (21:53)
[2019-11-30] MEDS: HEPARIN SODIUM 5000UNIT/ML 1ML VIAL SQ SCH (22:00)
[2019-11-30] MEDS ORDERED: SODIUM CHLORIDE 0.9% 500ML 500 ML IV SCH (22:19)
[2019-11-30 22:48] VITALS: BP 140/88
--- NOTE | 2019-11-30 23:00 | NUR ---
PATIENT ARRIVED ON UNIT WITH HEPARIN DRIP AT 17ML HR. AND NS AT 50ML/HR. DENIES CHEST PAIN AT THIS TIME. DOES C/O SOB WITH EXERTION. NITRO PASTE TO CHEST APPLIED. PATIENT PREPPED FOR LHC IN AM. WILL BE NPO AT MIDNIGHT AND CONSENT WILL BE SIGNED.
[2019-11-30] MEDS: FAMOTIDINE 20MG TAB 20 MG TAB PO SCH (23:54)
[2019-11-30] MEDS: METOPROLOL TARTRATE 25 MG TAB PO SCH (23:54)
[2019-11-30] MEDS: NITROGLYCERIN 1GM/1 INCH PACKET TD SCH (23:55)
[2019-11-30] MEDS: HEPARIN 25000 UNITS/250 ML D5W 250 ML IV SCH (23:57)
[2019-12-01] VITALS (9 sets, daily range): BP systolic 112–134; BP diastolic 66–86
[2019-12-01 04:50] LABS: APPEARANCE,URINE Clear (CLEAR); BILIRUBIN,URINE Negative (NEGATIVE); COLOR,URINE Yellow (YELLOW); GLUCOSE, URINE (UA) >=1000 mg/dL (NEGATIVE); KETONES,URINE Negative (NEGATIVE); LEUKOCYTE ESTERASE ,URINE Negative (NEGATIVE); NITRATE,URINE Negative (NEGATIVE); OCCULT BLOOD,URINE Negative (NEGATIVE); PROTEIN,URINE Negative (NEGATIVE); UROBILINOGEN,URINE 0.2 mg/dL (0.2-1.0)
[2019-12-01] MEDS: NITROGLYCERIN 1GM/1 INCH PACKET TD SCH (05:24)
[2019-12-01] MEDS: HEPARIN 25000 UNITS/250 ML D5W 250 ML IV SCH (05:26)
[2019-12-01] MEDS: INSULIN HUMULIN R 100 UNIT/ML 3ML SQ SCH ×2 (06:37→12:11)
--- NOTE | 2019-12-01 06:39 | NUR ---
NO INSULIN COVERAGE GIVEN. PATIENT IS NPO FOR [facility] AT NOON.
[2019-12-01] MEDS ORDERED: LIDOCAINE HCL 2% 20ML ONE (07:24)
[2019-12-01] MEDS ORDERED: MIDAZOLAM HCL 1 MG/ML 2ML VIAL ONE (07:24)
[2019-12-01] MEDS ORDERED: IOHEXOL-350 50ML VIAL IV ONE (07:24)
[2019-12-01] MEDS ORDERED: IOHEXOL 350 MG/ML 100ML INFUS..BTL IV ONE (07:24)
[2019-12-01] MEDS ORDERED: FENTANYL CITRATE PF 50 MCG/1 ML 2ML VIAL ONE (07:24)
[2019-12-01] MEDS ORDERED: BIVALIRUDIN 250 MG/VIAL IV ONE (07:27)
[2019-12-01] MEDS ORDERED: NITROGLYCERIN 2 MG/VIAL VIAL IV ONE (07:41)
[2019-12-01] MEDS: ASPIRIN 81MG TAB.CHEW PO SCH (07:45)
[2019-12-01] MEDS: HEPARIN SODIUM 5000UNIT/ML 1ML VIAL SQ SCH (07:45)
[2019-12-01] MEDS: TICAGRELOR 90 MG TABLET PO SCH (07:46)
[2019-12-01] MEDS: METOPROLOL TARTRATE 25 MG TAB PO SCH (09:42)
[2019-12-01] MEDS: LOSARTAN 50 MG TABLET PO SCH (09:43)
[2019-12-01] MEDS: FAMOTIDINE 20MG TAB 20 MG TAB PO SCH (09:43)
[2019-12-01] MEDS ORDERED: ISOS60TA4 PO (14:31)
[2019-12-01] MEDS ORDERED: DAPA5TAB PO (14:32)
[2019-12-01] MEDS ORDERED: ICOS1CAP PO (14:33)
== END 2019-12-01 15:13 | disposition home or self-care (01) | DRG 192 ==
LOC: EDH 17:15 → EDHIP 17:16 → 2DH 11-30 22:44
PROVIDERS: ADMIT Internal Medicine; ATTEND Internal Medicine
PROC: 4A023N7 Measurement of Cardiac Sampling and Pressure, Left Heart, Percutaneous Approach (ICD-10-PCS; principal; 2019-12-01)
PROC: B2111ZZ Fluoroscopy of Multiple Coronary Arteries using Low Osmolar Contrast (ICD-10-PCS; 2019-12-01)
PROC: B2151ZZ Fluoroscopy of Left Heart using Low Osmolar Contrast (ICD-10-PCS; 2019-12-01)
DX: T82.858A Stenosis of other vascular prosthetic devices, implants and grafts, initial encounter (principal); I21.4 Non-ST elevation (NSTEMI) myocardial infarction; I50.31 Acute diastolic (congestive) heart failure; B96.81 Helicobacter pylori [H. pylori] as the cause of diseases classified elsewhere; E78.5 Hyperlipidemia, unspecified; E66.9 Obesity, unspecified; E11.65 Type 2 diabetes mellitus with hyperglycemia; I11.0 Hypertensive heart disease with heart failure; K21.9 Gastro-esophageal reflux disease without esophagitis; Z95.5 Presence of coronary angioplasty implant and graft; I25.110 Atherosclerotic heart disease of native coronary artery with unstable angina pectoris; M19.90 Unspecified osteoarthritis, unspecified site; Z68.29 Body mass index [BMI] 29.0-29.9, adult; Y83.8 Other surgical procedures as the cause of abnormal reaction of the patient, or of later complication, without mention of misadventure at the time of the procedure; Z79.4 Long term (current) use of insulin; Z79.899 Other long term (current) drug therapy; Z82.3 Family history of stroke; Z82.49 Family history of ischemic heart disease and other diseases of the circulatory system; Z83.3 Family history of diabetes mellitus; I25.2 Old myocardial infarction; Y92.89 Other specified places as the place of occurrence of the external cause
CPT/HCPCS: 36415; 71045; 80053; 80061; 81003; 82550; 82947; 82948; 83036; 84443; 84484; 85025; 85347; 85610; 85730; 93005; 93458; 99156; 99157; C1760; C1894; G0378; J0583; J1644; J1815; J2250; J2270; J2405; J3010; J3490; J7030; Q9967

== ENCOUNTER → 2020-07-07 | Outpatient (CLI) | payer MEDICAID ==
[~2020-07-07] MED LIST changes: +AMOX500C2 PO; -ASPI-1181 PO; +ASPI-1443 PO; +ATOR40TA69 PO; +CLAR-44 PO; +DAPA5TAB PO; -EMPA1TAB7 PO; +GENTOO OU; +ICOS1CAP PO; +ISOS60TA4 PO; -Isosorbide Mono 30MG Tab Sr PO; +METF-446 PO; +PANT40TA55 PO; -ROSU40TA21 PO
== END | disposition home or self-care (01) ==
LOC: SHCH 10:22
PROVIDERS: ATTEND Internal Medicine Cardiovascular Disease
DX: I87.2 Venous insufficiency (chronic) (peripheral) (principal); I73.9 Peripheral vascular disease, unspecified
CPT/HCPCS: 93925; 93970

== ENCOUNTER → 2020-09-29 | Outpatient (CLI) | payer MEDICAID | END | disposition home or self-care (01) | LOC: SHCH 08:46 | PROVIDERS: ATTEND Internal Medicine Cardiovascular Disease | DX: I87.2 Venous insufficiency (chronic) (peripheral) (principal) | CPT/HCPCS: 93970 ==

== ENCOUNTER 2021-01-18 05:44 | Day surgery (SDC) | payer MEDICAID ==
[~2021-01-18] VITALS: Ht 182.9 cm; Wt 96.2 kg
[2021-01-18] VITALS (7 sets, daily range): BP systolic 105–118; BP diastolic 72–82
[~2021-01-18 05:44] MED LIST changes: -AMOX500C2 PO; -ATOR40TA69 PO; +ATOR40TA71 PO; +BACL10TA PO; -CLAR-44 PO; +DAPA10TA PO; -DAPA5TAB PO; +EZET10TA13 PO; +FENO48TA9 PO; -GENTOO OU; +ISOS30TA92 PO; -ISOS60TA4 PO; -LISI-617 PO; +LISI-809 PO; -METO25 PO; +METO25TA6 PO; -PANT40TA55 PO; -SITA100T12 PO
[2021-01-18] MEDS ORDERED: SODIUM CHLORIDE 0.9% 1000ML 1,000 ML IV ONE (06:15)
[2021-01-18] MEDS ORDERED: PROPOFOL 10 MG/ML 20ML VIAL IV ONE (06:24)
[2021-01-18] MEDS ORDERED: GLYCOPYRROLATE 1 MG/5 ML SYRINGE ONE (06:24)
== END 2021-01-18 08:00 | disposition home or self-care (01) ==
LOC: DAH 05:44 → ENDO 05:44
PROVIDERS: ATTEND Internal Medicine
DX: K29.50 Unspecified chronic gastritis without bleeding (principal); B96.81 Helicobacter pylori [H. pylori] as the cause of diseases classified elsewhere; Z20.828 Contact with and (suspected) exposure to other viral communicable diseases
CPT/HCPCS: 43239; 82948 ×2; 93005; A4215 ×2; A4221; A4222; A4223; A4606; A4620; A4657; A4663; C9803; J2704; J3490; J7030; U0003

== ENCOUNTER → 2021-04-13 | Outpatient (CLI) | payer MEDICAID | END | disposition home or self-care (01) | LOC: RAH 10:34 | PROVIDERS: ATTEND Internal Medicine Gastroenterology | DX: K30 Functional dyspepsia (principal); R14.0 Abdominal distension (gaseous); R11.0 Nausea | CPT/HCPCS: 78264; A9541 ==

== ENCOUNTER 2021-05-10 08:00 | Day surgery (SDC) | payer MEDICAID ==
[~2021-05-10 08:00] MED LIST changes: +0.9%NACL 1000ML 1,000 ML IV ONE; +DULA0.75 SQ
[2021-05-10 10:12] VITALS: BP 101/70
[2021-05-10] MEDS ORDERED: OMEP40CA21 PO (10:35)
[2021-05-10] MEDS ORDERED: LIDOCAINE PF 100MG/5ML (2%) SYRINGE 5ML ONE (12:05)
[2021-05-10] MEDS ORDERED: MIDAZOLAM HCL 1 MG/ML 2ML VIAL ONE (12:05)
[2021-05-10] MEDS ORDERED: PROPOFOL 10 MG/ML 20ML VIAL IV ONE (12:05)
[2021-05-10] MEDS ORDERED: FENTANYL CITRATE PF 50 MCG/1 ML 2ML VIAL ONE (12:25)
[2021-05-10 12:39] VITALS: BP 97/57
[2021-05-10 12:45] VITALS: BP 91/53
[2021-05-10 12:50] VITALS: BP 92/60
[2021-05-10 12:55] VITALS: BP 91/60
[2021-05-10 13:00] VITALS: BP 99/68
== END 2021-05-10 13:20 | disposition home or self-care (01) ==
LOC: DAH 08:00 → ENDO 08:00
PROVIDERS: ATTEND Internal Medicine Gastroenterology
DX: R13.10 Dysphagia, unspecified (principal); Z20.822 Contact with and (suspected) exposure to COVID-19; K29.50 Unspecified chronic gastritis without bleeding; K31.89 Other diseases of stomach and duodenum; I10 Essential (primary) hypertension; E11.43 Type 2 diabetes mellitus with diabetic autonomic (poly)neuropathy; K31.84 Gastroparesis; I25.2 Old myocardial infarction; I25.10 Atherosclerotic heart disease of native coronary artery without angina pectoris; M19.90 Unspecified osteoarthritis, unspecified site; E78.5 Hyperlipidemia, unspecified; F41.9 Anxiety disorder, unspecified; F32.9 Major depressive disorder, single episode, unspecified; Z72.89 Other problems related to lifestyle; Z86.010 Personal history of colon polyps; Z86.19 Personal history of other infectious and parasitic diseases; Z79.899 Other long term (current) drug therapy
CPT/HCPCS: 43239; 43248; 82948; 87426; 88305; 88342; 93005; A4215 ×2; A4221; A4222; A4223; A4606; A4620; A4657 ×2; A4663; J2250; J3010; J3490 ×2; J7030; J2001; J2704

== ENCOUNTER 2021-09-26 18:44 | Observation (INO) | payer MEDICAID ==
[~2021-09-26] VITALS: Ht 182.9 cm; Wt 95.9 kg
[~2021-09-26 18:44] MED LIST changes: -0.9%NACL 1000ML 1,000 ML IV ONE; +FENO48TA10 PO; -FENO48TA9 PO; -LISI-809 PO; +LISI5TAB21 PO; +OMEP40CA21 PO
[2021-09-26 19:25] LABS: BASOPHILS % (AUTO) 0.8 % (0.0-5.0); EOSINOPHILS % (AUTO) 0.8 % (0.0-8.0); HEMATOCRIT 39.5 % (42-54); LYMPHOCYTES % (AUTO) 34.7 % (21.0-51.0); MEAN CORPUSCULAR HGB CONC 33.7 g/dL (32.0-36.0); MONOCYTES % (AUTO) 9.9 % (3.0-13.0); NEUTROPHILS % (AUTO) 53.2 % (40.0-77.0); PLATELET COUNT (AUTO) 258 K/uL (130-400); RED BLOOD CELL COUNT(AUTO) 4.44 MIL/uL (4.50-6.20); RED CELL DISTRIBUTION WIDTH 12.9 % (11.0-15.5); WHITE BLOOD COUNT (AUTO) 5.1 K/uL (4.8-10.8)
[2021-09-26 19:31] LABS: CREATININE 1.2 mg/dL (0.5-1.5); POTASSIUM 4.5 mmol/L (3.5-5.1)
[2021-09-26 19:40] LABS: ALBUMIN 3.9 g/dL (3.5-5.0); BILIRUBIN,TOTAL 0.4 mg/dL (0.2-1.0); TOTAL PROTEIN, SERUM 7.6 g/dL (6.0-8.3)
[2021-09-26 19:51] LABS: B-TYPE NATRIURETIC PEPTIDE 25 pg/mL (0-100)
[2021-09-26] MEDS ORDERED: ASPIRIN 325MG TAB PO ONE (20:00)
[2021-09-26] MEDS ORDERED: ACETAMINOPHEN 500 MG TABLET PO ONE (20:00)
[2021-09-26] MEDS ORDERED: NITROGLYCERIN 1GM OINT 1 INCH/1GM TD ONE (20:00)
[2021-09-26] MEDS ORDERED: NITROGLYCERIN 0.4 MG SL TAB SL PRN (22:00)
[2021-09-26] MEDS ORDERED: LACTULOSE 20 GM/30 ML UDCUP PO PRN (22:00)
[2021-09-26] MEDS ORDERED: MAGNESIUM 2GM PREMIX 50ML 50 ML IV PRN (22:00)
[2021-09-26] MEDS ORDERED: ONDANSETRON 4MG INJ IV PRN (22:00)
[2021-09-26] MEDS ORDERED: ACETAMINOPHEN 325 MG TAB PO PRN ×2 (22:00)
[2021-09-26 22:23] LABS: HEMOGLOBIN A1C 8.7 % (4.0-6.0)
[2021-09-26 23:00] LABS: CHOLESTEROL 177 mg/dL (<200); HDL CHOLESTEROL 24 mg/dL (29-71); LDL DIRECT 37 mg/dL (0-99); TRIGLYCERIDES 1314 mg/dL (30-200)
[2021-09-27] MEDS ORDERED: KETOROLAC 15MG/ML VIAL (15MG/ML) IV ONE (02:00)
[2021-09-27 03:00] VITALS: BP 140/87
[2021-09-27] MEDS ORDERED: GENT5DRO32 OP (03:17)
[2021-09-27] MEDS ORDERED: ICOS1CAP PO (03:17)
[2021-09-27] MEDS: INSULIN HUMULIN R 100 UNIT/ML 3ML SQ SCH ×2 (06:37→12:35)
[2021-09-27 07:49] VITALS: BP 108/70
[2021-09-27] MEDS ORDERED: FAMOTIDINE 20MG TAB PO SCH (09:00)
[2021-09-27] MEDS ORDERED: ASPIRIN 81 MG EC TAB PO SCH (09:00)
[2021-09-27] MEDS ORDERED: ENOXAPARIN SODIUM 40 MG/0.4 ML SYRINGE SQ SCH (09:00)
[2021-09-27] MEDS ORDERED: METOPROLOL TARTRATE 25 MG TAB PO SCH (09:00)
[2021-09-27] MEDS ORDERED: GENTAMICIN SULFATE 0.3% 5ML DROPS OP SCH (10:00)
[2021-09-27 11:28] VITALS: BP 109/75
[2021-09-27] MEDS ORDERED: ATORVASTATIN 20 MG TABLET PO SCH (21:00)
[2021-09-27] MEDS ORDERED: FISH OIL 1000 MG/CAP PO SCH (21:00)
[2021-09-28] MEDS ORDERED: EZETIMIBE 10 MG TAB PO SCH (09:00)
[2021-09-28] MEDS ORDERED: ISOSORBIDE MONO 30MG SR TAB PO SCH (09:00)
[2021-09-28] MEDS ORDERED: FENOFIBRATE NANOCRYSTALLIZED 48 MG TAB PO SCH (09:00)
[2021-09-28] MEDS ORDERED: LISINOPRIL 5 MG TABLET PO SCH (09:00)
== END 2021-09-27 16:21 | disposition home or self-care (01) ==
LOC: EDH 18:44 → EDHIP 18:45 → 3BH 09-27 01:38
PROVIDERS: ADMIT Internal Medicine; ATTEND Internal Medicine
DX: R07.89 Other chest pain (principal); I25.110 Atherosclerotic heart disease of native coronary artery with unstable angina pectoris; I10 Essential (primary) hypertension; E11.65 Type 2 diabetes mellitus with hyperglycemia; E83.42 Hypomagnesemia; E87.1 Hypo-osmolality and hyponatremia; E78.2 Mixed hyperlipidemia; G89.29 Other chronic pain; I25.2 Old myocardial infarction; Z79.82 Long term (current) use of aspirin; Z79.84 Long term (current) use of oral hypoglycemic drugs; Z79.899 Other long term (current) drug therapy; Z87.891 Personal history of nicotine dependence; Z95.5 Presence of coronary angioplasty implant and graft
CPT/HCPCS: 36415 ×2; 71045; 80053; 80061; 82550; 82948 ×2; 83036; 83735 ×2; 83880; 84484 ×3; 85025; 93005 ×3; 96365; 96366; 96372; 96375; 99285; G0378 ×18; J1650; J1815; J1885; J3475

== ENCOUNTER 2021-12-15 10:31 | Emergency (ER) | payer MEDICAID ==
[~2021-12-15] VITALS: Ht 182.9 cm; Wt 104.3 kg
[~2021-12-15 10:31] MED LIST changes: -BACL10TA PO; -DULA0.75 SQ; +GENT5DRO32 OP
[2021-12-15 11:22] LABS: BASOPHILS % (AUTO) 0.8 % (0.0-5.0); HEMATOCRIT 37.2 % (42-54); LYMPHOCYTES % (AUTO) 31.2 % (21.0-51.0); MEAN CORPUSCULAR HEMOGLOBIN 28.3 pg (27.0-33.0); MEAN CORPUSCULAR VOLUME 88.6 fL (79-99); MONOCYTES % (AUTO) 13.7 % (3.0-13.0); NEUTROPHILS % (AUTO) 51.7 % (40.0-77.0); PLATELET COUNT (AUTO) 262 K/uL (130-400)
[2021-12-15 11:38] LABS: CREATININE 1.3 mg/dL (0.5-1.5); POTASSIUM 3.7 mmol/L (3.5-5.1)
[2021-12-15 11:41] LABS: INR 0.95 (0.85-1.15); PROTHROMBIN TIME 10.4 SEC (9.6-11.6)
[2021-12-15 11:42] LABS: PARTIAL THROMBOPLASTIN TIME 27.6 SEC (26.3-35.5)
[2021-12-15] MEDS ORDERED: CEPH500B PO (12:20)
[2021-12-15] MEDS ORDERED: SULF1TAB42 PO (12:20)
[2021-12-15 12:40] VITALS: BP 135/84
== END 2021-12-15 12:32 | disposition home or self-care (01) ==
LOC: EDH 10:31
DX: L03.116 Cellulitis of left lower limb (principal); I25.10 Atherosclerotic heart disease of native coronary artery without angina pectoris; E78.00 Pure hypercholesterolemia, unspecified; I10 Essential (primary) hypertension; Z79.82 Long term (current) use of aspirin; Z79.899 Other long term (current) drug therapy; Z79.84 Long term (current) use of oral hypoglycemic drugs; Z98.890 Other specified postprocedural states
CPT/HCPCS: 36415; 80048; 85025; 85610; 85730; 93971

== ENCOUNTER → 2022-01-18 | Outpatient (CLI) | payer MEDICAID ==
[~2022-01-18] MED LIST changes: +CEPH500B PO; +SULF1TAB42 PO
[2022-01-18 10:18] LABS: CREATININE 1.2 mg/dL (0.5-1.5)
== END | disposition home or self-care (01) ==
LOC: LAB 08:53
PROVIDERS: ATTEND Nurse Practitioner Family
DX: Z48.812 Encounter for surgical aftercare following surgery on the circulatory system (principal); L02.416 Cutaneous abscess of left lower limb; Z95.1 Presence of aortocoronary bypass graft
CPT/HCPCS: 36415; 82565; 84520

== ENCOUNTER → 2022-01-19 | Outpatient (CLI) | payer MEDICAID ==
[~2022-01-19] MED LIST changes: +IOHEXOL 350 MG/ML 100ML INFUS..BTL IV ONE
== END | disposition home or self-care (01) ==
LOC: RAH 09:22
PROVIDERS: ATTEND Thoracic Surgery (Cardiothoracic Vascular Surgery)
DX: Z48.812 Encounter for surgical aftercare following surgery on the circulatory system (principal); L02.416 Cutaneous abscess of left lower limb; Z95.1 Presence of aortocoronary bypass graft
CPT/HCPCS: 73702; Q9967

== ENCOUNTER 2022-04-09 21:40 | Emergency (ER) | payer MEDICAID ==
[~2022-04-09] VITALS: Ht 182.9 cm; Wt 103.9 kg
[~2022-04-09 21:40] MED LIST changes: -IOHEXOL 350 MG/ML 100ML INFUS..BTL IV ONE
[2022-04-09] MEDS ORDERED: ACETAMINOPHEN 500 MG TABLET ONE (22:11)
[2022-04-09 22:27] LABS: BASOPHILS % (AUTO) 0.7 % (0.0-5.0); HEMATOCRIT 37.6 % (42-54); LYMPHOCYTES % (AUTO) 21.6 % (21.0-51.0); MEAN CORPUSCULAR HEMOGLOBIN 29.6 pg (27.0-33.0); MONOCYTES % (AUTO) 9.2 % (3.0-13.0); NEUTROPHILS % (AUTO) 67.1 % (40.0-77.0); PLATELET COUNT (AUTO) 187 K/uL (130-400); RED BLOOD CELL COUNT(AUTO) 4.32 MIL/uL (4.50-6.20); RED CELL DISTRIBUTION WIDTH 14.8 % (11.0-15.5); WHITE BLOOD COUNT (AUTO) 2.8 K/uL (4.8-10.8)
[2022-04-09] MEDS ORDERED: ACETAMINOPHEN 500 MG TABLET PO ONE (22:30)
[2022-04-09 22:35] LABS: APPEARANCE,URINE CLEAR (CLEAR); BILIRUBIN,URINE NEGATIVE (NEGATIVE); COLOR,URINE YELLOW (YELLOW); GLUCOSE, URINE (UA) >=1000 mg/dL (NEGATIVE); KETONES,URINE NEGATIVE (NEGATIVE); LEUKOCYTE ESTERASE ,URINE NEGATIVE (NEGATIVE); NITRATE,URINE NEGATIVE (NEGATIVE); OCCULT BLOOD,URINE TRACE-INTACT (NEGATIVE); PROTEIN,URINE TRACE mg/dL (NEGATIVE); UROBILINOGEN,URINE 0.2 mg/dL (0.2-1.0)
[2022-04-09 22:46] LABS: CARBON DIOXIDE 22 mmol/L (21-32); CHLORIDE 101 mmol/L (101-111); GLOMERULAR FILTR. RATE CALC 84 mL/min (>60); GLUCOSE,RANDOM 286 mg/dL (70-105); POTASSIUM 4.1 mmol/L (3.5-5.1); SODIUM SERUM 135 mmol/L (136-145); UREA NITROGEN, BLOOD 11 mg/dL (7-18)
[2022-04-09 22:53] LABS: ALBUMIN 3.4 g/dL (3.5-5.0); TOTAL PROTEIN, SERUM 7.5 g/dL (6.0-8.3)
[2022-04-09 22:54] LABS: RBC,URINE 0-1 /HPF (0-1)
[2022-04-09 22:55] LABS: BACTERIA,URINE None Seen /HPF (None Seen); WBC,URINE 0-1 /HPF (0-1)
[2022-04-09 22:56] LABS: SQUAMOUS EPITHELIAL CELL,UR Few /HPF (0-2)
[2022-04-10] MEDS ORDERED: IBUP-2077 PO (00:06)
[2022-04-10 00:12] LABS: ALANINE AMINOTRANSFERASE 86 U/L (12-78); ASPARTATE AMINOTRANSFERASE 181 U/L (10-37)
[2022-04-10 00:17] VITALS: BP 112/69
[2022-04-10 01:07] LABS: BAND NEUTROPHILS % (MANUAL) 1 % (0-2); LYMPHOCYTES % (MANUAL) 18 % (22-44); MONOCYTES % (MANUAL) 1 % (2-9); MYELOCYTES % 1 % (0-0); REACTIVE LYMPHOCYTES 1 % (0-0); SEGMENTED NEUTROPHILS % 78 % (40-70)
[2022-04-10 01:08] LABS: MAN.DIFF COMMENT-IMPRESSION MANUAL DIFFERENTIAL; PLATELET MORPHOLOGY COMMENT ADEQUATE
== END 2022-04-10 00:23 | disposition home or self-care (01) ==
LOC: EDH 21:40
DX: U07.1 COVID-19 (principal); M19.90 Unspecified osteoarthritis, unspecified site; E11.9 Type 2 diabetes mellitus without complications; E78.00 Pure hypercholesterolemia, unspecified; I10 Essential (primary) hypertension; Z98.890 Other specified postprocedural states; Z79.82 Long term (current) use of aspirin; Z79.899 Other long term (current) drug therapy; Z79.84 Long term (current) use of oral hypoglycemic drugs
CPT/HCPCS: 99285; 71045; 87635; 82150; 84484; 80053; 85025; 87040 ×2; 87880; 87804 ×2; 83605; 81001; 36415; 93005; C9803

== ENCOUNTER → 2022-05-09 | Outpatient (CLI) | payer MEDICAID ==
[~2022-05-09] MED LIST changes: +IBUP-2077 PO
[2022-05-09 12:40] LABS: CREATININE 0.9 mg/dL (0.5-1.5)
== END | disposition home or self-care (01) ==
LOC: LAB 08:18
PROVIDERS: ATTEND Internal Medicine Cardiovascular Disease
DX: I25.119 Atherosclerotic heart disease of native coronary artery with unspecified angina pectoris (principal)
CPT/HCPCS: 36415; 80048; 83880

== ENCOUNTER 2022-06-07 09:25 | Day surgery (SDC) | payer MEDICAID ==
[2022-06-07] VITALS (11 sets, daily range): BP systolic 101–138; BP diastolic 63–91
[~2022-06-07] VITALS: Ht 182.9 cm; Wt 102.5 kg
[2022-06-07] MEDS ORDERED: 0.9%NACL 1000ML 1,000 ML IV ONE (10:12)
[2022-06-07] MEDS ORDERED: METO5 PO (10:52)
[2022-06-07] MEDS ORDERED: GABA300S PO (10:53)
[2022-06-07] MEDS ORDERED: DULA0.75 SQ (10:54)
[2022-06-07] MEDS ORDERED: DAPA10TA PO (10:55)
[2022-06-07] MEDS ORDERED: AMIO200T68 PO (10:56)
[2022-06-07] MEDS ORDERED: LINA290C PO (10:56)
[2022-06-07] MEDS ORDERED: LEVO25CA4 PO (10:57)
[2022-06-07] MEDS ORDERED: PROPOFOL 10 MG/ML 20ML VIAL IV ONE (12:47)
== END 2022-06-07 13:55 | disposition home or self-care (01) ==
LOC: DAH 09:25 → EDSTATUS 12:03 → DAH 13:55
PROVIDERS: ATTEND Internal Medicine Gastroenterology
DX: K31.A12 Gastric intestinal metaplasia without dysplasia, involving the body (corpus) (principal); R13.10 Dysphagia, unspecified; K29.50 Unspecified chronic gastritis without bleeding; K21.9 Gastro-esophageal reflux disease without esophagitis; K59.04 Chronic idiopathic constipation; K31.84 Gastroparesis; I10 Essential (primary) hypertension; E11.43 Type 2 diabetes mellitus with diabetic autonomic (poly)neuropathy; I25.10 Atherosclerotic heart disease of native coronary artery without angina pectoris; F41.9 Anxiety disorder, unspecified; E78.5 Hyperlipidemia, unspecified; F32.A Depression, unspecified; I25.2 Old myocardial infarction; M19.90 Unspecified osteoarthritis, unspecified site; Z98.890 Other specified postprocedural states; Z95.5 Presence of coronary angioplasty implant and graft; Z86.010 Personal history of colon polyps; Z95.1 Presence of aortocoronary bypass graft
CPT/HCPCS: 87426; 43239; 82948 ×2; 88305; 88342; J7030; J3490; A4620; A4215 ×2; A4223; A4222; A4221; A4663; A4606; J2704

== ENCOUNTER → 2022-09-14 | Outpatient (CLI) | payer MEDICAID ==
[~2022-09-14] MED LIST changes: +AMIO200T68 PO; -CEPH500B PO; +DULA0.75 SQ; +GABA300S PO; -GENT5DRO32 OP; +LEVO25CA4 PO; +LINA290C PO; +METO5 PO; -SULF1TAB42 PO
== END | disposition home or self-care (01) ==
LOC: SHCH 14:05
PROVIDERS: ATTEND Internal Medicine Cardiovascular Disease
DX: I87.2 Venous insufficiency (chronic) (peripheral) (principal)
CPT/HCPCS: 93970

== ENCOUNTER 2023-03-08 20:52 | Emergency (ER) | payer MEDICAID ==
[~2023-03-08] VITALS: Ht 182.9 cm; Wt 96.2 kg
[~2023-03-08 20:52] MED LIST changes: -GABA300S PO; +GABA300S3 PO
[2023-03-08 21:51] LABS: APPEARANCE,URINE CLEAR (CLEAR); BILIRUBIN,URINE NEGATIVE (NEGATIVE); COLOR,URINE COLORLESS (YELLOW); GLUCOSE, URINE (UA) >=1000 mg/dL (NEGATIVE); KETONES,URINE NEGATIVE (NEGATIVE); LEUKOCYTE ESTERASE ,URINE NEGATIVE Leu/uL (NEGATIVE); NITRATE,URINE NEGATIVE (NEGATIVE); OCCULT BLOOD,URINE NEGATIVE (NEGATIVE); PROTEIN,URINE NEGATIVE (NEGATIVE); UROBILINOGEN,URINE 0.2 mg/dL (0.2-1.0)
[2023-03-08 21:52] LABS: SQUAMOUS EPITHELIAL CELL,UR RARE /HPF (0-2); WBC,URINE 0-1 /HPF (0-1)
[2023-03-08 22:12] LABS: BASOPHILS % (AUTO) 0.7 % (0.0-5.0); HEMATOCRIT 43.7 % (42-54); LYMPHOCYTES % (AUTO) 12.7 % (21.0-51.0); MEAN CORPUSCULAR HEMOGLOBIN 29.7 pg (27.0-33.0); MEAN CORPUSCULAR HGB CONC 33.4 g/dL (32.0-36.0); MEAN CORPUSCULAR VOLUME 88.8 fL (79-99); MONOCYTES % (AUTO) 6.7 % (3.0-13.0); NEUTROPHILS % (AUTO) 79.4 % (40.0-77.0); PLATELET COUNT (AUTO) 255 K/uL (130-400); RED BLOOD CELL COUNT(AUTO) 4.92 MIL/uL (4.50-6.20); RED CELL DISTRIBUTION WIDTH 13.1 % (11.0-15.5); WHITE BLOOD COUNT (AUTO) 8.8 K/uL (4.8-10.8)
[2023-03-08 22:39] LABS: INR 0.93 (0.85-1.15); PROTHROMBIN TIME 9.7 SEC (9.6-11.6)
[2023-03-08 22:41] LABS: CREATININE 1.3 mg/dL (0.5-1.5); POTASSIUM 4.4 mmol/L (3.5-5.1)
[2023-03-08 22:52] LABS: B-TYPE NATRIURETIC PEPTIDE < 5 pg/mL (0-100)
[2023-03-09] MEDS ORDERED: IBUP-1493 PO (00:52)
[2023-03-09 01:00] VITALS: BP 122/56
== END 2023-03-09 01:41 | disposition home or self-care (01) ==
LOC: EDH 20:52
DX: R07.89 Other chest pain (principal); I10 Essential (primary) hypertension; E11.9 Type 2 diabetes mellitus without complications; E78.00 Pure hypercholesterolemia, unspecified; M19.90 Unspecified osteoarthritis, unspecified site; Z79.82 Long term (current) use of aspirin; Z79.84 Long term (current) use of oral hypoglycemic drugs; Z79.899 Other long term (current) drug therapy; Z79.890 Hormone replacement therapy; Z95.1 Presence of aortocoronary bypass graft; Z98.890 Other specified postprocedural states
CPT/HCPCS: 36415; 71045; 80053; 81001; 82550; 83880; 84484; 85025; 85610; 93005

== ENCOUNTER 2023-11-28 11:17 | Inpatient (IN) | payer MEDICAID, OTHER ==
[~2023-11-28] VITALS: Ht 182.9 cm; Wt 94.3 kg
[~2023-11-28 11:17] MED LIST changes: -EZET10TA13 PO; +EZET10TA81 PO; +IBUP-1493 PO
[2023-11-28 13:23] LABS: BASOPHILS # (AUTO) 0.06 K/uL (0.00-0.20); BASOPHILS % (AUTO) 1.1 % (0.0-5.0); EOSINOPHILS # (AUTO) 0.03 K/uL (0.00-0.70); EOSINOPHILS % (AUTO) 0.6 % (0.0-8.0); HEMATOCRIT 41.8 % (42-54); IMMATURE GRANULOCYTE ABSOLUTE 0.02 K/uL (0-1); LYMPHOCYTES # (AUTO) 1.7 K/uL (1.0-4.8); LYMPHOCYTES % (AUTO) 31.5 % (21.0-51.0); MEAN CORPUSCULAR HEMOGLOBIN 30.8 pg (27.0-33.0); MEAN CORPUSCULAR HGB CONC 34.7 g/dL (32.0-36.0); MEAN CORPUSCULAR VOLUME 88.7 fL (79-99); MONOCYTES # (AUTO) 0.5 K/uL (0.1-1.0); MONOCYTES % (AUTO) 8.5 % (3.0-13.0); NEUTROPHILS # (AUTO) 3.1 K/uL (1.8-7.7); NEUTROPHILS % (AUTO) 57.9 % (40.0-77.0); PLATELET COUNT (AUTO) 261 K/uL (130-400); RED BLOOD CELL COUNT(AUTO) 4.71 MIL/uL (4.50-6.20); RED CELL DISTRIBUTION WIDTH 13.2 % (11.0-15.5); WHITE BLOOD COUNT (AUTO) 5.3 K/uL (4.8-10.8)
[2023-11-28 13:29] LABS: CREATININE 1.3 mg/dL (0.5-1.5); INR <= 0.93 (0.85-1.15); POTASSIUM 4.4 mmol/L (3.5-5.1); PROTHROMBIN TIME 9.8 SEC (9.6-11.6)
[2023-11-28 13:33] LABS: ALBUMIN 4.2 g/dL (3.5-5.0); BILIRUBIN,TOTAL 0.7 mg/dL (0.2-1.0); TOTAL PROTEIN, SERUM 7.9 g/dL (6.0-8.3)
[2023-11-28] MEDS ORDERED: IOHEXOL-350 75 ML VIAL IV ONE (14:29)
[2023-11-28] MEDS: ASPIRIN 81MG CHEW TAB PO ONE (15:48)
[2023-11-28] MEDS ORDERED: HYDRALAZINE 20MG/ML VIAL IV PRN (16:00)
[2023-11-28 16:05] LABS: HEMOGLOBIN A1C 8.6 % (4.0-6.0)
[2023-11-28 16:10] LABS: THYROID STIMULATING HORMONE 1.28 uIU/mL (0.36-3.74)
[2023-11-28 17:23] LABS: ADD UA MICROSCOPIC YES; APPEARANCE,URINE CLEAR (CLEAR); BILIRUBIN,URINE NEGATIVE (NEGATIVE); COLOR,URINE COLORLESS (YELLOW); GLUCOSE, URINE (UA) >=1000 mg/dL (NEGATIVE); KETONES,URINE NEGATIVE (NEGATIVE); LEUKOCYTE ESTERASE ,URINE NEGATIVE Leu/uL (NEGATIVE); NITRATE,URINE NEGATIVE (NEGATIVE); OCCULT BLOOD,URINE NEGATIVE (NEGATIVE); PROTEIN,URINE NEGATIVE (NEGATIVE); UROBILINOGEN,URINE 0.2 mg/dL (0.2-1.0)
[2023-11-28 17:49] LABS: MUCUS,URINE RARE LPF (None Seen); RBC,URINE 0-1 /HPF (0-1); SQUAMOUS EPITHELIAL CELL,UR RARE /HPF (0-2); WBC,URINE 0-1 /HPF (0-1)
[2023-11-28] MEDS: INSULIN HUMULIN R 100 UNIT/ML 3ML SQ SCH (18:00)
[2023-11-28] MEDS: 0.9%NACL 1000ML 1,000 ML IV ONE (18:59)
[2023-11-28] MEDS ORDERED: NITR0.4T50 SL (20:14)
[2023-11-28] MEDS ORDERED: LINA290C PO (20:14)
[2023-11-28] MEDS ORDERED: CLOP75TA32 PO (20:14)
[2023-11-28] MEDS ORDERED: LEVO25TA54 PO (20:14)
[2023-11-28] MEDS ORDERED: GLIP10TA9 PO (20:14)
[2023-11-28] MEDS ORDERED: ICOS1CAP2 PO (20:14)
[2023-11-28] MEDS ORDERED: METF-446 PO (20:14)
[2023-11-28] MEDS ORDERED: PANT40TA54 PO (20:14)
[2023-11-28] MEDS ORDERED: ATOR40TA71 PO (20:14)
[2023-11-28] MEDS ORDERED: LISI5TAB21 PO (20:14)
[2023-11-28] MEDS ORDERED: EZET10TA48 PO (20:14)
[2023-11-28] MEDS ORDERED: DULA0.75 SQ (20:14)
[2023-11-28] MEDS ORDERED: METO5TAB2 PO (20:14)
[2023-11-28] MEDS ORDERED: DAPA10TA PO (20:14)
[2023-11-28] MEDS ORDERED: GABA300C PO (20:14)
[2023-11-28] MEDS ORDERED: AEC81 PO (20:14)
[2023-11-28 20:45] VITALS: O2SAT 97
[2023-11-28 21:42] VITALS: BP 127/76; PULSE 74; RESP 18
[2023-11-28] MEDS: FAMOTIDINE 20MG VIAL IV SCH (23:10)
[2023-11-28] MEDS: ACETAMINOPHEN 500 MG TABLET PO PRN (23:11)
[2023-11-29 00:52] VITALS: BP 128/81; PULSE 78; RESP 18
[2023-11-29 04:09] LABS: CHOLESTEROL 143 mg/dL (<200); HDL CHOLESTEROL 41 mg/dL (29-71); LDL DIRECT 35 mg/dL (0-99); TRIGLYCERIDES 598 mg/dL (30-200)
[2023-11-29 05:05] VITALS: BP 98/61; PULSE 71; RESP 18
[2023-11-29 05:12] VITALS: BP 108/67; PULSE 55; RESP 18
[2023-11-29] MEDS: LEVOTHYROXINE 25 MCG TABLET PO SCH (06:44)
[2023-11-29] MEDS ORDERED: KCL 20 MEQ ERTAB PO PRN (07:00)
[2023-11-29] MEDS ORDERED: POTASSIUM CHLORIDE 20MEQ/100ML 100 ML IV PRN (07:00)
[2023-11-29] MEDS ORDERED: POTASSIUM CHLORIDE 10% ELIXIR 20 MEQ/15 ML UDCUP PO PRN (07:00)
[2023-11-29] MEDS ORDERED: MAGNESIUM 2GM PREMIX 50ML 50 ML IV PRN (07:00)
[2023-11-29 07:01] LABS: BASOPHILS # (AUTO) 0.06 K/uL (0.00-0.20); BASOPHILS % (AUTO) 1.2 % (0.0-5.0); EOSINOPHILS # (AUTO) 0.05 K/uL (0.00-0.70); HEMATOCRIT 39.7 % (42-54); IMMATURE GRANULOCYTE ABSOLUTE 0.02 K/uL (0-1); LYMPHOCYTES # (AUTO) 2.2 K/uL (1.0-4.8); LYMPHOCYTES % (AUTO) 42.3 % (21.0-51.0); MEAN CORPUSCULAR HEMOGLOBIN 30.8 pg (27.0-33.0); MEAN CORPUSCULAR VOLUME 93.2 fL (79-99); MONOCYTES # (AUTO) 0.5 K/uL (0.1-1.0); MONOCYTES % (AUTO) 10.1 % (3.0-13.0); NEUTROPHILS # (AUTO) 2.3 K/uL (1.8-7.7); PLATELET COUNT (AUTO) 221 K/uL (130-400); RED BLOOD CELL COUNT(AUTO) 4.26 MIL/uL (4.50-6.20); RED CELL DISTRIBUTION WIDTH 13.3 % (11.0-15.5); WHITE BLOOD COUNT (AUTO) 5.1 K/uL (4.8-10.8)
[2023-11-29 07:04] LABS: CREATININE 1.1 mg/dL (0.5-1.5)
[2023-11-29 08:00] VITALS: O2SAT 98
[2023-11-29] MEDS: METOCLOPRAMIDE 5 MG TABLET PO SCH (08:18)
[2023-11-29] MEDS: ***HM*** (Linaclotide (Linzess) 290 MCG) PO SCH (08:18)
[2023-11-29] MEDS: EZETIMIBE 10 MG TAB PO SCH (08:18)
[2023-11-29] MEDS: GABAPENTIN 300 MG CAPSULE PO SCH (08:18)
[2023-11-29] MEDS: CLOPIDOGREL 75MG TAB PO SCH (08:18)
[2023-11-29] MEDS: PANTOPRAZOLE 40 MG TAB DR PO SCH (08:18)
[2023-11-29] MEDS: ASPIRIN 81MG CHEW TAB PO SCH (08:19)
[2023-11-29 08:26] VITALS: BP 139/84; PULSE 70; RESP 18
[2023-11-29] MEDS ORDERED: ATORVASTATIN 40 MG TABLET PO SCH (21:00)
== END 2023-11-29 08:55 | disposition home or self-care (01) | DRG 74 ==
LOC: EDH 11:17 → EDHIP 11:18 → UNDOADMIN 15:23 → 2AH 19:26
PROVIDERS: ADMIT Internal Medicine; ATTEND Internal Medicine
DX: G56.81 Other specified mononeuropathies of right upper limb (principal); E87.1 Hypo-osmolality and hyponatremia; I25.810 Atherosclerosis of coronary artery bypass graft(s) without angina pectoris; I12.9 Hypertensive chronic kidney disease with stage 1 through stage 4 chronic kidney disease, or unspecified chronic kidney disease; N18.2 Chronic kidney disease, stage 2 (mild); E11.22 Type 2 diabetes mellitus with diabetic chronic kidney disease; E11.65 Type 2 diabetes mellitus with hyperglycemia; E78.00 Pure hypercholesterolemia, unspecified; Z82.49 Family history of ischemic heart disease and other diseases of the circulatory system; Z95.1 Presence of aortocoronary bypass graft
CPT/HCPCS: 36415; 70450; 70496; 70498; 70551; 73521; 80048; 80053; 80061; 81001; 82550; 82948; 83036; 84145; 84443; 84484; 85025; 85610; 86140; 93005; 93931; G0378; J3490; Q9967

== ENCOUNTER 2024-07-02 06:27 | Day surgery (SDC) | payer MEDICARE ==
[2024-07-02] VITALS (9 sets, daily range): BP systolic 110–163; BP diastolic 3–94; PULSE 59–74; RESP 14–18; TEMP 97–98.1
[~2024-07-02] VITALS: Ht 182.9 cm; Wt 108.9 kg
[~2024-07-02 06:27] MED LIST changes: +0.9%NACL 1000ML 1,000 ML IV ONE; +AEC81 PO; -AMIO200T68 PO; -ASPI-1443 PO; +CLOP75TA32 PO; -DULA0.75 SQ; +EZET10TA48 PO; -EZET10TA81 PO; -FENO48TA10 PO; +GABA300C PO; -GABA300S3 PO; +GLIP10TA16 PO; -GLIP10TA9 PO; -IBUP-1493 PO; +IBUP-2070 PO; -IBUP-2077 PO; -ICOS1CAP PO; +ICOS1CAP2 PO; -ISOS30TA92 PO; -LEVO25CA4 PO; -LINA290C PO; -METO25TA6 PO; -METO5 PO; +METO5TAB2 PO; -NITR0.4T SL; -OMEP40CA21 PO; +PANT40TA54 PO; +SEMA1PEN3 SQ
[2024-07-02] MEDS ORDERED: proPOFol 10 MG/ML 20ML VIAL IV ONE ×2 (09:07→09:24)
== END 2024-07-02 10:20 | disposition home or self-care (01) ==
LOC: DAH 06:27 → ENDO 06:27
PROVIDERS: ATTEND Internal Medicine Gastroenterology
DX: K59.04 Chronic idiopathic constipation (principal); D12.0 Benign neoplasm of cecum; D12.4 Benign neoplasm of descending colon; K31.84 Gastroparesis; K31.A12 Gastric intestinal metaplasia without dysplasia, involving the body (corpus); R13.10 Dysphagia, unspecified; I10 Essential (primary) hypertension; E11.9 Type 2 diabetes mellitus without complications; F41.9 Anxiety disorder, unspecified; E78.5 Hyperlipidemia, unspecified; M19.90 Unspecified osteoarthritis, unspecified site; I25.2 Old myocardial infarction; F32.A Depression, unspecified; E66.9 Obesity, unspecified; Z79.82 Long term (current) use of aspirin; Z95.1 Presence of aortocoronary bypass graft; Z68.30 Body mass index [BMI] 30.0-30.9, adult; Z95.5 Presence of coronary angioplasty implant and graft; Z79.84 Long term (current) use of oral hypoglycemic drugs; Z79.899 Other long term (current) drug therapy
CPT/HCPCS: 82948 ×2; 45385; J7030 ×2; J2704 ×2; A4620; A4215; A4223; A7002; A4222; A4221; A4663; A4606; J3490

== ENCOUNTER → 2024-10-22 | Outpatient (CLI) | payer MEDICARE ==
[~2024-10-22] MED LIST changes: -0.9%NACL 1000ML 1,000 ML IV ONE
[2024-10-22 16:35] LABS: CREATININE 0.9 mg/dL (0.5-1.3); POTASSIUM 4.6 mmol/L (3.5-5.1)
== END | disposition home or self-care (01) ==
LOC: LAB 11:13
PROVIDERS: ATTEND Internal Medicine Cardiovascular Disease
DX: Z01.812 Encounter for preprocedural laboratory examination (principal); R06.02 Shortness of breath
CPT/HCPCS: 36415; 80048

== ENCOUNTER → 2024-10-24 | Outpatient (CLI) | payer MEDICARE ==
[~2024-10-24] MED LIST changes: +IOHEXOL 350 MG/ML 100ML INFUS..BTL IV ONE; +IOHEXOL-350 50ML VIAL IV ONE
--- NOTE | 2024-10-24 10:58 | HMCIMG ---
CT CARDIAC ANGIO W/CONT. CCTA REASON: CHEST PAIN COMPARISON: None TECHNIQUE: Images are obtained through the heart in the axial plane before and during bolus IV contrast infusion, 100 cc Omnipaque 350. 2-D and 3-D multiplanar reconstruction images were then performed. The injection had to be repeated once due to motion artifact on the first sequence, total contrast volume was 200 cc. FINDINGS: This dictation is for the noncardiac findings only. Cardiac and coronary artery findings are reported separately. Visualized portions of the lungs are clear. There is normal-appearing pulmonary interstitium. There is no hilar or mediastinal lymphadenopathy. Chest wall structures appear unremarkable. IMPRESSION: 1. Unremarkable noncardiac portions of CT cardiac angiography.
== END | disposition home or self-care (01) ==
LOC: RAH 08:32
PROVIDERS: ATTEND Internal Medicine Cardiovascular Disease
DX: I20.0 Unstable angina (principal); R07.9 Chest pain, unspecified; R06.00 Dyspnea, unspecified
CPT/HCPCS: 75574; Q9967 ×2

== ENCOUNTER → 2024-11-27 | Outpatient (CLI) | payer MEDICARE ==
[~2024-11-27] MED LIST changes: -IOHEXOL 350 MG/ML 100ML INFUS..BTL IV ONE; -IOHEXOL-350 50ML VIAL IV ONE
--- NOTE | 2024-11-30 13:36 | HMCSR ---
APPROVED REPORT EXAM: Two-dimensional and M-mode echocardiogram with Doppler and color Doppler. INDICATION ICD: I25.42 Coronary artery dissection Chest Pain 2D Dimensions RVDd4.5 cmLVEF(%)54.8 (>50%)LVED Vol(simp.)111.0 mL IVSd1.1 (0.7-1.1cm)FS(%)29 %LVES Vol(simp.)49.0 mL LVDd4.9 (3.8-5.6cm)LA (2D)3.6 (1.6-4.0cm)LVEF(%, simp.)56 % PWd0.8 (0.7-1.1cm)Ao Root(2D)3.4 (2.0-3.7cm)LA ESV INDEX (BP)25.95 mL/m2 LVDs3.5 (2.5-4.0cm)LVOT diam2.1 (1.8-2.4cm) IVC diam1.5 cm Aortic Valve AoV Vmax1.3 m/Alia Peak GR6.9 mmHgLVOT Vmax0.9 m/s AoV VTI0.3 mAo Mean GR3.6 mmHgLVOT VTI0.19 m ROBLES (VMAX)2.6 cm2AVA (VTI) 2.6 cm2 Mitral Valve MV E Vmax98.2 cm/sDECEL Qgnh564 ms MV A Vmax58.8 cm/sP 1/2 T62 ms E/A ratio1.7MVA (PHT)3.5 cm2 MR Max PG30 mmHg TDI E/E' Medial9.3E/E' Lateral6.1 Pulmonary Valve PV Vmax0.9 m/sPV VTI0.20 mPV Mean GR2 mmHg PV Peak GR3.4 mmHg Tricuspid Valve TR Vmax2.1 m/sRAP (EST) 3 kaPdLZAG01.8 mmHg TR Peak GR16.8 mmHg Left Ventricle Left ventricular cavity size is normal. There is normal LV segmental wall motion. There is borderline to mild left ventricular hypertrophy. LVEF is 50-55%. Left ventricular filling pattern is normal for age. Right Ventricle The right ventricle is mildly to moderately dilated. The right ventricular systolic function is ant l. Atria The left atrium size is normal. The right atrium size is normal. Aortic Valve Aortic valve is trileaflet. Aortic valve leaflets are sclerotic but open well. No aortic regurgitatio n is present. There is no aortic valvular stenosis. Mitral Valve Mitral valve leaflets are mildly sclerotic but open well. Mitral regurgitation is trace. There is no mitral valve stenosis. Tricuspid Valve The tricuspid valve leaflets appear normal. There is trace tricuspid regurgitation. Pulmonic Valve Pulmonic valve is not well visualized. Great Vessels The aortic root is normal in size. The IVC is normal in size and collapses >50% with inspiration. Pericardium No pericardial effusion. Conclusion LVEF is 50-55%. Left ventricular filling pattern is normal for age. There is normal LV segmental wall motion. The aortic root is normal in size.
== END | disposition home or self-care (01) ==
LOC: SHCH 14:06
PROVIDERS: ATTEND Internal Medicine Cardiovascular Disease
DX: I08.0 Rheumatic disorders of both mitral and aortic valves (principal); R06.09 Other forms of dyspnea; R07.9 Chest pain, unspecified; I25.42 Coronary artery dissection
CPT/HCPCS: 93306